=== PATIENT | male | born 1935 | race Caucasian/White ===

== ENCOUNTER 2018-06-27 20:08 | Inpatient (IN) ==
[2018-06-27 21:09] LABS: Basophils # 0.1 K/mcL (0.0-0.2); Basophils % 0.8 %; Eosinophils # 0.3 K/mcL (0.0-0.6); Eosinophils % 4.7 %; Hematocrit 39.9 % (37.5-50.1); Hemoglobin 13.2 g/dL (12.9-16.9); Immature Granulocytes % 0.3 % (0-4); Lymphocytes # 0.7 K/mcL (0.6-4.6); Lymphocytes % 11.2 %; Mean Corpuscular HGB Conc 33.1 g/dL (31.6-35.5); Mean Corpuscular Hemoglobin 30.7 pg (28.0-33.3); Mean Corpuscular Volume 92.8 fL (83.0-100.0); Mean Platelet Volume 10.3 fL (9.4-12.4); Monocytes # 0.8 K/mcL (0.0-1.3); Monocytes % 13.3 %; Neutrophils # 4.3 K/mcL (1.6-8.9); Platelet Count 182 K/mcL (140-400); Red Cell Distribution Width 13.7 % (11.5-14.5); Segmented Neutrophils % 69.7 %
[2018-06-27 21:15] LABS: INR 1.2; Prothrombin Time 13.7 Seconds (9.4-12.1)
[2018-06-27 21:18] LABS: Activated Partial Thrombo Time 30.7 Seconds (26.0-36.0)
--- NOTE | 2018-06-27 21:27 | Emergency Department Note ---
Disposition Clinical Impression: Weakness, Hyperglycemia, Acute kidney injury Chest pain Qualifiers: Chest pain type: unspecified Qualified Code(s): R07.9 - Chest pain, unspecified Disposition: Admitted As Inpatient Referrals: Shaun Villareal CNP [Primary Care Provider] - Forms: ED Satisfaction Letter General Adult HPI - General Chief complaint: ED Chest Pain Stated complaint: LOW BP Time Seen by Provider: 06/27/18 20:42 Source: patient Limitations: no limitations Nursing Notes Reviewed: Yes Vital Signs Reviewed: Yes - History of Present Illness HPI Narrative: 83-year-old male with past medical history including coronary artery disease status post three-vessel CABG in 1994, CHF, hypertension, hyperlipidemia, who presents with a chief complaint of low blood pressure and chest pain. Patient states he took his losartan last night before bed and is ropinirole this morning around 11 AM. His home health nurse came in around 1300 and took his blood pressure. His blood pressure was 103/40. They were concerned that his blood pressures were low. He had repeat blood pressures around this number. Patient states past couple of days he has been generally weak. He has had 2 falls but no loss of consciousness. No lightheadedness with the falls. Denies hitting his head. Some lightheadedness and no loss of consciousness. Around 1800 he developed nonradiating bilateral chest pressure with some shortness of breath. This resolved on its own after approximately 10 minutes. He states he has been having these episodes intermittently the past couple of months. States this episode was worse than prior and he was concerned about his blood pressure readings as well so he presents today ED this evening for further evaluation. At present he denies any pain and only complains of feeling tired. Patient does complain of productive cough for the past couple of weeks. No fevers. Pain Scale: 9 - Related Data Home Medications Medication Instructions Recorded Confirmed Albuterol Neb [Proventil Neb] 2.5 mg IH Q4H PRN 03/31/16 03/31/16 Albuterol Sulfate [Proair Hfa] 1 puff IH Q4H PRN 03/31/16 03/31/16 Aspirin 81 mg PO DAILY 03/31/16 03/31/16 Atorvastatin Calcium [Lipitor] 40 mg PO BID 03/31/16 03/31/16 Clopidogrel Bisulfate [Plavix] 75 mg PO BID 03/31/16 03/31/16 Clopidogrel [Plavix] 75 mg PO DAILY 03/31/16 03/31/16 Doxycycline Monohydrate [Mondoxyne 100 mg PO BID 03/31/16 03/31/16 Nl] Fluticasone Propionate Nasal 120 spray NS BID 03/31/16 03/31/16 [Flonase] Furosemide [Lasix] 40 mg PO DAILY 03/31/16 03/31/16 Guaifenesin 400 mg PO TID 03/31/16 03/31/16 HYDROcodone/Acet 5/325 mg [[place] 1 tab PO Q6H PRN 03/31/16 03/31/16 5-325 mg] Insulin ASPART [Novolog Flexpen] 5 unit SQ TID 03/31/16 03/31/16 Insulin Glargine,Hum.rec.anlog 20 unit SQ HS 03/31/16 03/31/16 [Lantus Solostar] Isosorbide MONOnitrate [Isosorbide 60 mg PO DAILY 03/31/16 03/31/16 Mononitrate] Losartan [Cozaar] 25 mg PO DAILY 03/31/16 03/31/16 Multivitamin [Multi-Day Vitamins] 1 tab PO DAILY 03/31/16 03/31/16 Neomycin/Polymyxin B Sulf/Hc 10 ml OT TID 03/31/16 03/31/16 [Xcwdvdwy-Tnabbbsxv-Js Ear Soln] Potassium Chloride [K-Tab ER] 40 meq PO DAILY 03/31/16 03/31/16 Ropinirole HCl [Requip] 5 mg PO HS 03/31/16 03/31/16 clonazePAM [Klonopin] 0.5 mg PO BID 03/31/16 03/31/16 Allergies Allergy/AdvReac Type Severity Reaction Status Date / Time doxycycline Allergy Hives Verified 06/27/18 20:25 enalaprilat [From Vasotec] Allergy Rash Verified 06/27/18 20:25 levofloxacin [From Levaquin] Allergy Hives Verified 06/27/18 20:25 Nefazodone [From Serzone] Allergy Hives Verified 06/27/18 20:25 ativan Allergy Seizure Uncoded 04/06/16 22:40 All systems ED: reviewed and negative except as stated. Review of Systems: As Per HPI Constitutional: Denies: fever, chills Eyes: Denies: vision change ENT ED: Denies: throat pain, congestion Cardiovascular: Reports: chest pain. Denies: palpitations, dyspnea on exertion Respiratory: Reports: cough (productive), dyspnea. Denies: wheezes Gastrointestinal: Denies: abdominal pain, nausea, diarrhea Genitourinary: Denies: urgency, dysuria Musculoskeletal: Denies: back pain Integumentary: Denies: rash Neurological: Reports: weakness. Denies: headache Allergic/Immunologic: Denies: itchy eyes Past Medical History - Past Medical History Attestation: Yes The following information was validated with the patient. Source: patient Medical history: Reports: CHF, diabetes, hyperlipidemia, hypertension, myocardial infarction Surgical history: Reports: cholecystectomy, coronary bypass (CABG) Psychiatric history: Reports: depression - Social History Smoking Status: Former smoker Smokeless Tobacco Status: No Alcohol use: Reports: none Drug use: Reports: none Physical Exam - General Limitations: no limitations General appearance: alert, in no apparent distress - Head Head exam: atraumatic, normocephalic - Eye Eye exam: Present: normal appearance, PERRL, EOMI - Neck Neck exam: Present: full ROM. Absent: tenderness - Respiratory Respiratory exam: Present: wheezes (mild bilateral expiratory wheezing). Absent : respiratory distress, accessory muscle use - Cardiovascular Cardiovascular exam: Present: normal rhythm, bradycardia, other (Bilateral radial pulses equal) - Abdominal Exam Abdominal exam: Present: soft, Non-Tender. Absent: distention, guarding - Expanded Lower Extremity Exam Hip/Pelvis exam: Present: normal inspection, full ROM - Neurological Exam Neurological exam: Present: alert, oriented X3, CN II-XII intact - Expanded Neurological Exam Patient oriented to: Present: person, place, time Speech: Present: fluid speech Cranial nerves: EOM function (II, III, IV, ): Normal, facial sensation (V): Normal, facial palsy (VII): Normal, spinal accessory function (XI): Normal, tongue deviation (XII): Normal Cerebellar function: finger to nose: Normal, heel to byrd: Normal Motor strength - LUE: 5/5 Motor strength - RUE: 5/5 Motor strength - LLE: 5/5 Motor strength - RLE: 5/5 Upper motor neuron exam: graciela neglect: Absent bilaterally, pronator drift: Absent bilaterally Sensory exam upper extremity: light touch: Normal Sensory exam lower extremity: light touch: Normal - Psychiatric Psychiatric exam: Present: normal affect, normal mood - Skin Skin exam: Present: warm, dry, intact Course Vital Signs Temperature 98.7 F 06/27/18 20:15 Pulse Rate 62 06/27/18 20:15 Respiratory Rate 20 06/27/18 20:15 Blood Pressure 138/74 06/27/18 20:15 O2 Sat by Pulse Oximetry 93 06/27/18 20:15 Temperature 98.7 F 06/27/18 20:15 Pulse Rate 60 06/27/18 22:47 Respiratory Rate 20 06/27/18 20:15 Blood Pressure 138/83 06/27/18 22:47 O2 Sat by Pulse Oximetry 96 06/27/18 22:47 Oxygen Delivery Oxygen Delivery Room Air Medical Decision Making - MDM Narrative Medical decision making narrative: Patient is presenting with chest pain and generalized weakness. Vitals while in the ED show normotensive blood pressures. Afebrile. We will obtain cardiac workup given his extensive cardiac history. EKG, CBC, BMP, troponin, BNP were ordered. We will also obtain chest x-ray and urinalysis given the patient's increased fatigue to rule out infectious process. 10:10 Labs and imaging reviewed. Troponin is less than 0.03. EKG unchanged from prior. No evidence of acute ischemia at this time. His creatinine is elevated. He appears dry. Glucose is elevated as well. We will give him a liter of IV fluids. He has no focal neurologic deficits or focal weakness. Urinalysis and chest x-ray without evidence of infection. We will admit the patient for further evaluation of generalized weakness and serial troponin given the patient's cardiac history. 10:35 Discussed with hospitalist, who accepts patient. No further recommendations at this time. Patient has remained chest pain free while in the ER. He has remained medically stable. - Medical Records Medical records reviewed: Yes I reviewed the patient's medical records. - Lab Data Lab results reviewed: Yes I reviewed the patient's lab results. Result diagrams: 06/27/18 20:51 06/27/18 20:51 Lab Results 06/27/18 06/27/18 06/27/18 Range/Units 20:51 20:51 20:51 WBC 6.2 (4.3-11.1) K/mcL RBC 4.30 (4.19-5.50) M/mcL Hgb 13.2 (12.9-16.9) g/dL Hct 39.9 (37.5-50.1) % MCV 92.8 (83.0-100.0) fL MCH 30.7 (28.0-33.3) pg MCHC 33.1 (31.6-35.5) g/dL RDW 13.7 (11.5-14.5) % Plt Count 182 (140-400) K/mcL MPV 10.3 (9.4-12.4) fL Immature Gran % 0.3 (0-4) % Seg Neutrophils % 69.7 % Lymphocytes % 11.2 % Monocytes % 13.3 % Eosinophils % 4.7 % Basophils % 0.8 % Neutrophils # 4.3 (1.6-8.9) K/mcL Lymphocytes # 0.7 (0.6-4.6) K/mcL Monocytes # 0.8 (0.0-1.3) K/mcL Eosinophils # 0.3 (0.0-0.6) K/mcL Basophils # 0.1 (0.0-0.2) K/mcL PT 13.7 H (9.4-12.1) Seconds INR 1.2 APTT 30.7 (26.0-36.0) Seconds Sodium (136-145) mEq/L Potassium (3.5-5.1) mEq/L Chloride (98-107) mEq/L Carbon Dioxide (23-29) mEq/L BUN (8-23) mg/dL Creatinine (0.70-1.30) mg/dL Est GFR ( Amer) (> 60) Est GFR (Non-Af Amer) (> 60) BUN/Creatinine Ratio (6-26) Glucose (70-105) mg/dL Calculated Osmolality (280-300) Calcium (8.6-10.3) mg/dL Troponin I (< 0.04) ng/mL B-Natriuretic Peptide (Less than 100) pg/mL TSH 2.401 (0.340-5.600) mcIU/mL Urine Color (Yellow) Urine Clarity (Clear) Urine pH (5.0-8.0) pH Units Ur Specific [place] (1.010-1.025) Urine Protein (Neg-Trace) mg/dL Urine Glucose (UA) (Normal) mg/dL Urine Ketones (Negative) mg/dL Urine Blood (Negative) Urine Nitrite (Negative) Urine Bilirubin (Negative) Urine Urobilinogen (Normal) mg/dL Ur Leukocyte Esterase (Negative) 06/27/18 06/27/18 06/27/18 Range/Units 20:51 20:51 21:42 WBC (4.3-11.1) K/mcL RBC (4.19-5.50) M/mcL Hgb (12.9-16.9) g/dL Hct (37.5-50.1) % MCV (83.0-100.0) fL MCH (28.0-33.3) pg MCHC (31.6-35.5) g/dL RDW (11.5-14.5) % Plt Count (140-400) K/mcL MPV (9.4-12.4) fL Immature Gran % (0-4) % Seg Neutrophils % % Lymphocytes % % Monocytes % % Eosinophils % % Basophils % % Neutrophils # (1.6-8.9) K/mcL Lymphocytes # (0.6-4.6) K/mcL Monocytes # (0.0-1.3) K/mcL Eosinophils # (0.0-0.6) K/mcL Basophils # (0.0-0.2) K/mcL PT (9.4-12.1) Seconds INR APTT (26.0-36.0) Seconds Sodium 136 (136-145) mEq/L Potassium 4.2 (3.5-5.1) mEq/L Chloride 101 (98-107) mEq/L Carbon Dioxide 29 (23-29) mEq/L BUN 30 H (8-23) mg/dL Creatinine 1.94 H (0.70-1.30) mg/dL Est GFR ( Amer) 40 L (> 60) Est GFR (Non-Af Amer) 33 L (> 60) BUN/Creatinine Ratio 15 (6-26) Glucose 351 H (70-105) mg/dL Calculated Osmolality 302 H (280-300) Calcium 9.2 (8.6-10.3) mg/dL Troponin I < 0.03 (< 0.04) ng/mL B-Natriuretic Peptide 69 (Less than 100) pg/mL TSH (0.340-5.600) mcIU/mL Urine Color Yellow (Yellow) Urine Clarity Clear (Clear) Urine pH 6.5 (5.0-8.0) pH Units Ur Specific [place] 1.008 L (1.010-1.025) Urine Protein Negative (Neg-Trace) mg/dL Urine Glucose (UA) 500 H (Normal) mg/dL Urine Ketones Negative (Negative) mg/dL Urine Blood Negative (Negative) Urine Nitrite Negative (Negative) Urine Bilirubin Negative (Negative) Urine Urobilinogen Normal (Normal) mg/dL Ur Leukocyte Esterase Negative (Negative) - Radiology Data Radiology results reviewed: Yes I reviewed the patient's radiology results. Chest X-Ray 06/27/18 20:26 IMPRESSION: No acute disease. D/ / Ronan Goldman MD / Ronan Goldman MD Interpreting Provider: Ronan Goldman MD - EKG Data EKG #1 EKG attestation: Yes I reviewed and interpreted this EKG. EKG results narrative: EKG from 06/27/2018 at 2019 shows sinus bradycardia with heart rate [address] elevation or depressions noted. No T-wave changes. Interval 201 ms. QTC 391. No evidence of acute ischemia. Compared to prior EKG on 01/13/2018 shows sinus rhythm with heart rate 60 otherwise no changes. Attestation Statement - Attestation Attestation: I examined this patient and my medical decision-making was reviewed with the Resident Physician, Dr. Reynolds. I agree with the documented findings, disposition and treatment plan as described except to the extent set forth below. Patient is an 83-year-old white male with a significant cardiac history as well as numerous risk factors including diabetes hypertension hyperlipidemia, who comes in complaining of 3 day history of gradually worsening generalized weakness as well as to recent falls secondary to "my legs giving out". Patient denies any preceding symptoms prior to these episodes no near-syncope or syncopal episodes. Patient states that he is just been feeling currently week and having trouble getting around as usual. Patient was also having intermittent episodes of chest pain although none currently. Patient arrives with abrasions and contusions to his bilateral knees secondary to his recent falls. Patient denies any head injury, no complaints of headache neck pain or back pain, no current chest discomfort or chest wall pain no abdominal pain no diaphoresis nausea vomiting or any other associated symptoms. I agree with patient's physical exam findings as documented. Vital signs are stable. Patient's lab evaluation shows mild hyperglycemia without acidosis, acute kidney injury likely secondary to decreased by mouth intake. Patient with no sign of infection seen normal chest x-ray and urine. Patient's cardiac evaluation shows an EKG was normal sinus rhythm without acute ischemia, no changes from prior EKG. Initial troponin is negative. Patient is chest pain- free at this time. Patient will be admitted for generalized weakness, chest pain with cardiac history, AK I, hyper glycemia. Case was discussed with hospitalist who accepted patient for admission. Heart Score - Score History: Slightly Suspicious EKG: Normal Age: Greater than 65 Risk Factors: Equal/Greater than 3 risk factor or history of atherosclerotic disease Troponin: Less than normal limit HEART Score Total: 4
[2018-06-27 21:28] LABS: BUN/Creatinine Ratio 15 (6-26); Blood Urea Nitrogen 30 mg/dL (8-23); Calcium 9.2 mg/dL (8.6-10.3); Carbon Dioxide 29 mEq/L (23-29); Chloride 101 mEq/L (98-107); Glucose 351 mg/dL (70-105); Osmolality,Calculated 302 (280-300); Potassium 4.2 mEq/L (3.5-5.1); Sodium 136 mEq/L (136-145); eGFR For Non-African Americans 33 (> 60)
[2018-06-27 21:29] LABS: Troponin I < 0.03 ng/mL (< 0.04)
[2018-06-27 22:03] LABS: Bilirubin,Urine Negative (Negative); Blood,Urine Negative (Negative); Clarity,Urine Clear (Clear); Color,Urine Yellow (Yellow); Glucose,Urine (UA) 500 mg/dL (Normal); Ketones,Urine Negative (Negative); Leukocyte Esterase,Urine Negative (Negative); Nitrite,Urine Negative (Negative); PH,Urine 6.5 pH Units (5.0-8.0); Protein,Urine Negative (Neg-Trace); Specific Gravity,Urine 1.008 (1.010-1.025); Urobilinogen,Urine Normal (Normal)
[2018-06-27] MEDS ORDERED: 0.9 % Sodium Chloride 1,000 ML IVC ONE (22:11)
[2018-06-28] MEDS ORDERED: Naloxone 0.4 MG/ML INJ IVP PRN (03:32)
[2018-06-28] MEDS ORDERED: *HR* Dextrose 50 % in Water (Syg) 50 ML SYRINGE IVP PRN (03:34)
[2018-06-28] MEDS ORDERED: Dextrose Gel 15 GM/37.5 ML TUBE PO PRN ×2 (03:34)
[2018-06-28] MEDS ORDERED: D5% in Water 1,000 ML IVC PRN (03:34)
--- NOTE | 2018-06-28 03:56 | Internal Med History&Physical ---
Date of Encounter: 06/28/18 Time of Encounter: 03:47 Internal Medicine - H&P: HPI Chief complaint: lower blood pressure Admitted From: Home Plans for Post Hospital Care: Home History of present illness: Mr. Hall is a 83 year old male presents due to low blood pressure. Reports [facility] nurse took his vitals and his BP is 103/40. Reports normally his bp is 130 /70. He is on losartan , imdur and lasix at home. He reports having light headedness and states his nurse saw him to be somnolent. He denies sob, chest pain, but did report uncomfortable upper abdominal gas pain. Reports he has been very flatulent lately. Patient reports having fallen 4 times the past year. Last time he follows one week ago where he was getting up from bed and his legs gave out, but patient denied syncope. He reported lightheadedness. His previous falls have been in similar manner. Past Med Surg Social Fam HX - Past Medical History Medical history: CHF, diabetes, hyperlipidemia, hypertension, myocardial infarction Additional medical history: enlarged prostate Psychiatric history: depression - Past Surgical History Surgical History: cholecystectomy, coronary bypass (CABG) Additional surgical history: CABG x 3v 1994. neck surgery - Social History Smoking Status: Former smoker Smokeless Tobacco Status: No Alcohol use: none Drug use: none - Family History Mother Living Status: Hx Family Cardiac Disorders: Yes Father Living Status: Hx Family Endocrine Disorder: Yes Internal Medicine - H&P: Meds Albuterol Neb [Proventil Neb] 2.5 mg IH Q4H PRN 03/31/16 [History] Albuterol Sulfate [Proair Hfa] 1 puff IH Q4H PRN 03/31/16 [History] Aspirin 81 mg PO DAILY 03/31/16 [History] Atorvastatin Calcium [Lipitor] 40 mg PO BID 03/31/16 [History] Clopidogrel Bisulfate [Plavix] 75 mg PO BID 03/31/16 [History] Clopidogrel [Plavix] 75 mg PO DAILY 03/31/16 [History] Doxycycline Monohydrate [Mondoxyne Nl] 100 mg PO BID 03/31/16 [History] Fluticasone Propionate Nasal [Flonase] 120 spray NS BID 03/31/16 [History] Furosemide [Lasix] 40 mg PO DAILY 03/31/16 [History] Guaifenesin 400 mg PO TID 03/31/16 [History] HYDROcodone/Acet 5/325 mg [[place] 5-325 mg] 1 tab PO Q6H PRN 03/31/16 [History] Insulin ASPART [Novolog Flexpen] 5 unit SQ TID 03/31/16 [History] Insulin Glargine,Hum.rec.anlog [Lantus Solostar] 20 unit SQ HS 03/31/16 [History ] Isosorbide MONOnitrate [Isosorbide Mononitrate] 60 mg PO DAILY 03/31/16 [History ] Losartan [Cozaar] 25 mg PO DAILY 03/31/16 [History] Multivitamin [Multi-Day Vitamins] 1 tab PO DAILY 03/31/16 [History] Neomycin/Polymyxin B Sulf/Hc [Lkdfawrl-Wvjdhmkok-Dq Ear Soln] 10 ml OT TID 03/31 [History] Potassium Chloride [K-Tab ER] 40 meq PO DAILY 03/31/16 [History] Ropinirole HCl [Requip] 5 mg PO HS 03/31/16 [History] clonazePAM [Klonopin] 0.5 mg PO BID 03/31/16 [History] 3 Allergy/AdvReac Type Severity Reaction Status Date / Time doxycycline Allergy Hives Verified 06/27/18 20:25 enalaprilat [From Vasotec] Allergy Rash Verified 06/27/18 20:25 levofloxacin [From Levaquin] Allergy Hives Verified 06/27/18 20:25 Nefazodone [From Serzone] Allergy Hives Verified 06/27/18 20:25 ativan Allergy Seizure Uncoded 04/06/16 22:40 All Systems PM: A 10-system review of systems was performed and is negative for pertinent findings except as documented above in the HPI. Review of systems: Constitutional: Denies fever, chills HEENT: Denies headache, trauma, blurry vision, eye discharge, ear pain, ear discharge neck pain, sore throat, rhinorrhea Heart: Denies chest pain palpitations, LE edema Lungs: Denies shortness of breath cough Abdomen: Worse abdominal pain, denies nausea vomiting diarrhea MSK: Denies back pain, joint pain reports falls Kidney: Denies dysuria, hematuria Skin: Denies rash, ulcers Neuro: Denies numbness and tingling Psych: denies anxiety, depression - Constitutional Vitals: Temp Pulse Resp BP Pulse Ox 97.8 F 54 16 131/74 92 06/28/18 00:01 06/28/18 00:01 06/28/18 00:01 06/28/18 00:01 06/28/18 00:01 Exam: General: pleasant, without distress HEENT: Head atraumatic, normocephalic, EOMI, PERRL, absent ear discharge or trauma, Moist Mucous Membranes, uvula midline Neck: nontender to palpation, absent lymphadenopathy, Cardiovascualr: Regular rate and rhythm with no murmur, absent gallops or rubs, 1+ pedal edema, radial pulses 2 out of 4 Lungs: Clear to auscultation bilaterally, not in respiratory distress Abdomen: Soft nontender, nondistended positive bowel sounds, absent hepatomegaly Skin: Bilateral knee abrasions, absent rash, absent open wounds and nodules MSK: absent clubbing, cyanosis, joints without swelling Neuro: Cranial nerves II through XII intact, UE and LE sensation equal bilaterally, UE and LEstrength 5/5, alert oriented 3, Psych: good insight and judgment, anxious, depressed Internal Med - H&P Results - Labs CBC & Chem 7: 06/27/18 20:51 06/27/18 20:51 - Assessment and plan (1) Diabetes mellitus Current Visit: Yes Status: Chronic Assessment and plan: Insulin-dependent diabetes mellitus Last A1c was 13.6 in 2016 Recheck A1c Started on weight-based insulin Diabetic diet Qualifiers: Diabetes mellitus type: type 2 Diabetes mellitus senior care insulin use: with senior care use Diabetes mellitus complication status: without complication Qualified Code(s): E11.9 - Type 2 diabetes mellitus without complications; Z79.4 - MCFP (current) use of insulin (2) Orthostatic hypotension Current Visit: Yes Status: Acute Assessment and plan: Patient presents with chief complaint of low blood pressure He also states that he has had multiple falls in the past year or Patient is standing up from a sitting position becomes lightheaded and his legs give out Due to patient's age, history of uncontrolled diabetes mellitus and mechanism of fall patient likely has orthostatic hypotension Would recommend a blood pressure goal of 140/90 for this patient due to his age. Currently blood pressure is 131/74 Plan: Every 4 vitals, telemetry, orthostatic vitals. (3) Abdominal pain Current Visit: Yes Status: Resolved Assessment and plan: Patient reports generalized upper abdomen pain Relates it to "gas pain" Reports increased flatulence States currently this is resolved From the emergency department patient was admitted for chest pain however patient denied this EKG is normal sinus rhythm without ST elevation or depression. Troponin all within normal limits. Chest x-ray within normal limits Qualifiers: Abdominal location: generalized Qualified Code(s): R10.84 - Generalized abdominal pain (4) Acute kidney injury Current Visit: Yes Status: Acute Assessment and plan: Patient's serum creatinines 1.94 He is a baseline CKD3 Mild NICOLAS Given 1 L IV fluids and EGD Recheck BMP in the morning (5) Coronary artery disease Current Visit: Yes Status: Chronic Assessment and plan: Patient has history of coronary artery disease status post CABG He denies chest pain Continue aspirin, atorvastatin, Plavix Qualifiers: Coronary Disease-Associated Artery/Lesion type: bypass graft [place] vs. transplanted heart: unspecified whether [place] or transplanted heart Associated angina: without angina Qualified Code(s): I25.810 - Atherosclerosis of coronary artery bypass graft(s) without angina pectoris (6) Hypertension Current Visit: Yes Status: Chronic Assessment and plan: Patient has history of hypertension At this point his blood pressures under control. Plan as above Qualifiers: Hypertension type: essential hypertension Qualified Code(s): I10 - Essential (primary) hypertension (7) RLS (restless legs syndrome) Current Visit: Yes Status: Chronic Assessment and plan: continue requip - Time Spent With Patient Total time spent is greater than 50% in coordination of care (as documented) at patient's floor/unit and/or counseling patient:
[2018-06-28 05:01] LABS: Calcium 8.5 mg/dL (8.6-10.3); Potassium 4.2 mEq/L (3.5-5.1)
[2018-06-28 07:25] LABS: Estimated Average Glucose 200 mg/dl; Hemoglobin A1C 8.6 %
[2018-06-28] MEDS: Furosemide 40 MG TABLET PO SCH (07:54)
[2018-06-28] MEDS: Aspirin 81 MG TAB.CHEW PO SCH (07:54)
[2018-06-28] MEDS: clonazePAM 0.5 MG TABLET PO SCH ×2 (07:55→21:17)
[2018-06-28] MEDS: Insulin LISPRO 300 UNITS/3 ML VIAL SQ SCH ×7 (07:57→21:18)
--- NOTE | 2018-06-28 12:54 | Event Note ---
Date of Encounter: 06/28/18 Time of Encounter: 12:49 83-year-old male with past medical history of hypertension, hyperlipidemia, diabetes, and restless leg syndrome presented with low blood pressure. He had a home service technician, who checked his blood pressure with reading of 103/40. Patient stated the number is lower than usual BP. He also reported malaise and the pressure in both ears recently. - Patient blood pressure normalized since omission, orthostatic BP was negative. - he has history of sensorineural hearing loss, he is in the process of getting a hearing aid. Patient was instructed to follow-up with PCP for ear exam. - Patient will be discharged in the morning if BP remains normal.
--- NOTE | 2018-06-28 17:06 | Electrocardiograph Report ---
[address] [place], [place] [address] Test Date: 2018-06-27 Pat Name: Errol Hall Department: [id number] Room: 3B44 Gender: M Van Loader: : 1935 Requested By: Ze Wade Order Number: [id number] Reading MD: Shira Ellis Measurements Intervals [place] Rate: 54 P: 22 [place]: 201 QRS: -35 QRSD: 86 T: 38 QT: 404 QTc: 391 Interpretive Statements SINUS BRADYCARDIA LOW QRS VOLTAGE IN PRECORDIAL LEADS INFERIOR MYOCARDIAL INFARCTION, PROBABLY OLD ANTEROLATERAL MYOCARDIAL INFARCTION, PROBABLY OLD Electronically Signed On 06-28-2018 17:05:06 EDT by Shira Ellis
[2018-06-28] MEDS ORDERED: NON-FORMULARY MEDICATION 1 EACH EACH (Ropinirole Hcl [Requip] 5 MG) PO SCH (21:00)
[2018-06-28] MEDS ORDERED: rOPINIRole 2 MG, rOPINIRole 3 MG PO SCH (21:00)
[2018-06-28] MEDS: Insulin DETEMIR 100 UNIT/ML X5UNITS SQ SCH (21:13)
[2018-06-29 07:01] LABS: BUN/Creatinine Ratio 18 (6-26); Blood Urea Nitrogen 23 mg/dL (8-23); Calcium 9.2 mg/dL (8.6-10.3); Carbon Dioxide 27 mEq/L (23-29); Chloride 102 mEq/L (98-107); Glucose 90 mg/dL (70-105); Osmolality,Calculated 287 (280-300); Potassium 3.9 mEq/L (3.5-5.1); Sodium 137 mEq/L (136-145); eGFR For Non-African Americans 55 (> 60)
[2018-06-29] MEDS: Insulin LISPRO 300 UNITS/3 ML VIAL SQ SCH ×7 (07:33→22:16)
[2018-06-29] MEDS: Aspirin 81 MG TAB.CHEW PO SCH (08:54)
[2018-06-29] MEDS: *HR* HYDROcodone/Acet 5/325 mg TABLET PO PRN (08:55)
[2018-06-29] MEDS: clonazePAM 0.5 MG TABLET PO SCH ×2 (08:55→22:25)
[2018-06-29] MEDS: Furosemide 40 MG TABLET PO SCH (08:55)
--- NOTE | 2018-06-29 19:36 | Internal Med Progress Note ---
Hospitalist Progress Note - Encounter Date of Encounter: 06/29/18 Time of Encounter: 18:00 - Subjective Interval History: Today Mr. Riley has a multitude of complaints. He does complain of having pressure in his ears with parmelodyvley worsing throughout the day . He states that the first thing in the morning when he gets up he has good hearing and as the day goes on his ears seem to accumulate pressure and by the end of the evening he is near deafness. 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 Was recommended to see Denteal for posssible bite block and new dentrurs, states that he was denied to go to the [facility]. He also complains of leg weakness, and multiple falls with reporting hitting his head on a chair and floor a few weeks ago. He now has right sided neck pain . - Exam Vitals: Temp Pulse Resp BP Pulse Ox 97.7 F 56 16 132/62 96 06/29/18 18:57 06/29/18 18:57 06/29/18 18:57 06/29/18 18:57 06/29/18 18:57 Exam: as above - Assessment and Plan (1) Coronary artery disease Current Visit: Yes Status: Chronic Assessment and Plan: Patient has history of coronary artery disease status post CABG He denies chest pain Continue aspirin, atorvastatin, Plavix (2) Diabetes mellitus Current Visit: Yes Status: Chronic Assessment and Plan: Glucose is greatly improved today at 90 fasting which is down from 234 from yesterday he has normalized with his current regimen. We will continue his Levemir and Humalog (3) Hypertension Current Visit: Yes Status: Chronic Assessment and Plan: Patient has history of hypertension At this point his blood pressures under control. Plan as above (4) Abdominal pain Current Visit: Yes Status: Resolved (5) Acute kidney injury Current Visit: Yes Status: Acute Assessment and Plan: Patient has long-term history of diabetes type 2 BUN/creatinine has normalized and GFR is greater than 60 we will continue to monitor. AK is probable due to dehydration (6) Orthostatic hypotension Current Visit: Yes Status: Acute (7) RLS (restless legs syndrome) Current Visit: Yes Status: Chronic Assessment and Plan: It has long-term history of versus leg syndrome and it appears that he was taking his ropinirole for restless leg 3 Times Daily with Maximum Doses of 5 Mg per Report. He also was taking his Cozaar at bedtime along with an excessive dose of 5 mg. As a result he was having some syncopal episodes and falling at night. He has history of frequent falls with latest fall falling out of a chair and hitting his head as well as contusing both of his knees region of the right knee. We will obtain x-rays of bilateral knees , will consult neuro DVT Prophylaxis: per protocol - Summary of Assessment and Plan Summary of Assessment and Plan: Mr. Mcdaniels is an 83-year-old vibrant pleasant elderly gentleman who today has multiple complaints mainly referring to his pressure in his ears, as related to hearing loss. He reports that when he first wakes up in the morning that he has crystal-clear hearing and as the day progresses he has pressure within his ears and. It the evening he is at a bulbous near deafness level. Reports that he is seen multiple ENTs and finally ended up at the [facility]. There he was diagnosed with TMJ and was recommended to have a new set of dentures made and to get a bite block at night. He reported that due to being a and he was denied services for these recommendations. Today he also complains of having leg weakness and frequent falls. He states that prior to admission he had fallen and hit his head and had contused both knees we will get x-ray of the bilateral knees to rule out any fracture. Were going to refer him to PT OT as well as to neurology. - Time Spent with Patient Total time spent is greater than 50% in coordination of care (as documented) at patient's floor/unit and/or counseling patient: 25 - 35 minutes Plan of Care Discussed with: patient Internal Medicine: Result - Labs CBC & Chem 7: 06/27/18 20:51 06/29/18 05:09 Labs: BMP 06/29/18 05:09 Sodium 137 Potassium 3.9 Chloride 102 Carbon Dioxide 27 BUN 23 Creatinine 1.26 Glucose 90 Calcium 9.2 - ABG Interpretation ABG results: PT/INR, D-dimer PT 13.7 Seconds (9.4-12.1) H 06/27/18 20:51 Consult Discharge Plan - Plan Referrals: Shaun Villareal CNP [Primary Care Provider] - (1) Coronary artery disease Qualifiers: Coronary Disease-Associated Artery/Lesion type: bypass graft [place] vs. transplanted heart: unspecified whether [place] or transplanted heart Associated angina: without angina Qualified Code(s): I25.810 - Atherosclerosis of coronary artery bypass graft(s) without angina pectoris (2) Diabetes mellitus Qualifiers: Diabetes mellitus type: type 2 Diabetes mellitus terminal supervisor insulin use: with penitentiary use Diabetes mellitus complication status: without complication Qualified Code(s): E11.9 - Type 2 diabetes mellitus without complications; Z79.4 - terminal operations manager (current) use of insulin (3) Hypertension Qualifiers: Hypertension type: essential hypertension Qualified Code(s): I10 - Essential (primary) hypertension (4) Abdominal pain Qualifiers: Abdominal location: generalized Qualified Code(s): R10.84 - Generalized abdominal pain
[2018-06-29] MEDS ORDERED: rOPINIRole 1 MG TABLET PO SCH (21:00)
[2018-06-29] MEDS: Insulin DETEMIR 100 UNIT/ML X5UNITS SQ SCH (22:26)
[2018-06-30] MEDS: Insulin LISPRO 300 UNITS/3 ML VIAL SQ SCH ×7 (08:28→21:12)
[2018-06-30] MEDS: Furosemide 40 MG TABLET PO SCH (08:31)
[2018-06-30] MEDS: Aspirin 81 MG TAB.CHEW PO SCH (08:31)
[2018-06-30] MEDS: clonazePAM 0.5 MG TABLET PO SCH ×2 (08:31→21:13)
--- NOTE | 2018-06-30 12:52 | Internal Med Progress Note ---
Hospitalist Progress Note - Encounter Date of Encounter: 06/30/18 Time of Encounter: 12:51 - Subjective Interval History: Pt states he has had some issues with pressure built up in his ears and build up pressure in his ears. He states he was diagnosed with TMJ at [facility] and again at [facility]. States physician at [facility] had offered that he see hiw who also happen to be a TMJ specialist. Pt states he was not able to make the 21/2 hour trip back down. States his PCP is helping him set up an appointment with [facility] dental. He denies fever, chills, N/V or diarrhea. He denies CP or SOB. - Exam Vitals: Temp Pulse Resp BP Pulse Ox 97.7 F 53 16 135/73 93 06/30/18 11:56 06/30/18 11:56 06/30/18 11:56 06/30/18 11:56 06/30/18 11:56 Exam: Exam: General: pleasant, without distress HEENT: Head atraumatic, normocephalic, EOMI, PERRL, absent ear discharge or trauma, Moist Mucous Membranes, uvula midline Neck: nontender to palpation, absent lymphadenopathy, Cardiovascualr: Regular rate and rhythm with no murmur, absent gallops or rubs, 1+ pedal edema, radial pulses 2 out of 4 Lungs: Clear to auscultation bilaterally, not in respiratory distress Abdomen: Soft nontender, nondistended positive bowel sounds, absent hepatomegaly Skin: Bilateral knee abrasions, absent rash, absent open wounds and nodules MSK: absent clubbing, cyanosis, joints without swelling Neuro: Cranial nerves II through XII intact, UE and LE sensation equal bilaterally, UE and LEstrength 5/5, alert oriented 3, Psych: good insight and judgment, anxious, depressed - Assessment and Plan (1) Diabetes mellitus Current Visit: Yes Status: Chronic Assessment and Plan: Insulin-dependent diabetes mellitus Last A1c was 13.6 in 2016 Recheck A1c 8.6. Started on weight-based insulin Diabetic diet (2) Hypertension Current Visit: Yes Status: Chronic Assessment and Plan: Patient has history of hypertension. Will hold Losartan for now. Blood pressures under control. (3) Abdominal pain Current Visit: Yes Status: Resolved Assessment and Plan: Resolved. (4) Acute kidney injury Current Visit: Yes Status: Acute Assessment and Plan: Patient's serum creatinine 1.94 down to 1.26. He is a baseline CKD3, Mild NICOLAS Given 1 L IV fluids in ED Recheck BMP in the morning (5) Orthostatic hypotension Current Visit: Yes Status: Acute Assessment and Plan: Patient presented with chief complaint of low blood pressure He also states that he has had multiple falls in the past year or Patient is standing up from a sitting position becomes lightheaded and his legs give out. Etiology unclear. Will consider hold BP medication for now. Will check orthostatic vitals. (6) RLS (restless legs syndrome) Current Visit: Yes Status: Chronic Assessment and Plan: Pt's Requip was increased to 4 mg BID and was taking it with his lorsatan. He thinks this may have contributed to his hypotensive episode. On this admission, Requip was held but then restarted at 2 mg QHS. Pt still have symptoms of RLS so Requip dose increased to 2mg BID for now. (7) Coronary artery disease Current Visit: Yes Status: Chronic Assessment and Plan: Patient has history of coronary artery disease status post CABG He denies chest pain Continue aspirin, atorvastatin, Plavix DVT Prophylaxis: per protocol - Summary of Assessment and Plan Summary of Assessment and Plan: Mr. Mcdaniels is an 83-year-old vibrant pleasant elderly gentleman who today has multiple complaints mainly referring to his pressure in his ears, as related to hearing loss. He reports that when he first wakes up in the morning that he has crystal-clear hearing and as the day progresses he has pressure within his ears and. It the evening he is at a bulbous near deafness level. Reports that he is seen multiple ENTs and finally ended up at the [facility]. There he was diagnosed with TMJ and was recommended to have a new set of dentures made and to get a bite block at night. He reported that due to being a and he was denied services for these recommendations. Today he also complains of having leg weakness and frequent falls. He states that prior to admission he had fallen and hit his head and had contused both knees we will get x-ray of the bilateral knees to rule out any fracture. - Time Spent with Patient Total time spent is greater than 50% in coordination of care (as documented) at patient's floor/unit and/or counseling patient: 25 - 35 minutes Internal Medicine: Result - Labs CBC & Chem 7: 06/27/18 20:51 06/29/18 05:09 - ABG Interpretation ABG results: PT/INR, D-dimer PT 13.7 Seconds (9.4-12.1) H 06/27/18 20:51 - Impressions Impressions Knee X-Ray 06/29/18 19:49 IMPRESSION: Prepatellar soft tissue swelling bilaterally. No underlying acute fracture or malalignment. Mild osteoarthrosis about the bilateral knees. D/ / Tyler Bergman / Tyler Bergman Interpreting Provider: Tyler Bergman Consult Discharge Plan - Plan Referrals: Shaun Villareal CNP [Primary Care Provider] - (1) Diabetes mellitus Qualifiers: Diabetes mellitus type: type 2 Diabetes mellitus skilled nursing insulin use: with skilled nursing use Diabetes mellitus complication status: without complication Qualified Code(s): E11.9 - Type 2 diabetes mellitus without complications; Z79.4 - rodent exterminator (current) use of insulin (2) Hypertension Qualifiers: Hypertension type: essential hypertension Qualified Code(s): I10 - Essential (primary) hypertension (3) Abdominal pain Qualifiers: Abdominal location: generalized Qualified Code(s): R10.84 - Generalized abdominal pain (7) Coronary artery disease Qualifiers: Coronary Disease-Associated Artery/Lesion type: bypass graft [place] vs. transplanted heart: unspecified whether [place] or transplanted heart Associated angina: without angina Qualified Code(s): I25.810 - Atherosclerosis of coronary artery bypass graft(s) without angina pectoris
--- NOTE | 2018-06-30 13:09 | Neurology - Consult Note ---
Date of Encounter: 06/30/18 Time of Encounter: 13:08 Assessment and Plan (1) Falls Current Visit: Yes Status: Acute Falling likely multifactorial in etiology, including history of peripheral diabetic neuropathy, indicated by presence of stock pattern of sensory loss and absence of DTRs, history of cervical disc disease causing myelopathy and then hearing loss. He did mention that in the evening hours when he can not hear he falls more easily. Today he walks with no difficulty. His gait, stance, pace appear intact to an 83 year old. Not much to intervene other than fall precautions. Will sign off at this time please call if any questions Qualifiers: Encounter type: initial encounter Qualified Code(s): W19.XXXA - Unspecified fall, initial encounter (2) Hearing loss associated with syndrome of both ears Current Visit: Yes Status: Acute This is unlikely a primary neurological disorder. Patient has rather extensive work up at [facility] and it was thought that his symptoms of hearing difficulty at evening hours likely related to TMJ?. Hearing difficult can contribute to gait difficulty in elderly patients. However, not much to intervene in this regard. (3) Occipital neuralgia of right side Current Visit: Yes Status: Acute This is a type of cervicogenic pain, likely related to cervical radiculopathy. May benefit from PT or occipital nerve blockade procedure. This can be done as outpatient basis History of Present Illness Chief complaint: Falls HPI: Mr. Hall is a 83 year old male with PMH significant for DM, diabetic neuropathy, history of cervical disc disease, s/p cervical spinal surgery, bilateral hearing loss who was admitted to the hospital due to complaints of headaches, balance difficulty, few falls and low blood pressure. Neurology was consulted due to complaints of having two falls and hearing difficulty. Regarding the hearing difficulty, he has been extensively evaluated at different medical facilities, via ENT and was told that he has TMJ. His complaint of hearing difficulty was that in the morning he can hear everything but as the day goes on he would gradually lose his hearing bilaterally. He reports two recent falls, one occurred after he was taking a nap during daytime and after he got up he fell to he left side and injured his left knee. He reports stabbing pain at the right neck referring to the right side of his skull. No other neurological deficits reported. No focal weakness. No urinary incontinence. Now able to walk without assistance. Past Med Surg Social Fam HX - Past Medical History Medical history: CHF, diabetes, hyperlipidemia, hypertension, myocardial infarction Additional medical history: enlarged prostate Psychiatric history: depression - Past Surgical History Surgical History: cholecystectomy, coronary bypass (CABG) Additional surgical history: CABG x 3v 1994. neck surgery - Social History Smoking Status: Former smoker Smokeless Tobacco Status: No Alcohol use: none Drug use: none - Family History Mother Living Status: Hx Family Cardiac Disorders: Yes Father Living Status: Hx Family Endocrine Disorder: Yes Medications and Allergies RX: Albuterol Neb [Proventil Neb] 2.5 mg IH Q4H PRN 03/31/16 [History] RX: Albuterol Sulfate [Proair Hfa] 1 puff IH Q4H PRN 03/31/16 [History] RX: Aspirin 81 mg PO DAILY 03/31/16 [History] RX: Clopidogrel [Plavix] 75 mg PO DAILY 03/31/16 [History] RX: HYDROcodone/Acet 5/325 mg [[place] 5-325 mg] 1 tab PO Q6H PRN 03/31/16 [ History] RX: Insulin ASPART [Novolog Flexpen] 3 - 5 unit SQ TIDWM 03/31/16 [History] RX: Insulin Glargine,Hum.rec.anlog [Lantus Solostar] 16 unit SQ HS 03/31/16 [ History] RX: Losartan [Cozaar] 25 mg PO DAILY 03/31/16 [History] RX: Potassium Chloride [K-Tab ER] 20 meq PO DAILY 03/31/16 [History] Atorvastatin Calcium [Lipitor] 40 mg PO HS 06/28/18 [History] Isosorbide MONOnitrate (24 HR) [Imdur] 60 mg PO DAILY 06/28/18 [History] Multivitamin [One Daily Multivitamin] 1 tab PO DAILY 06/28/18 [History] Pregabalin [Lyrica] 75 mg PO BID 06/28/18 [History] Ropinirole HCl [Requip] 4 mg PO BID 06/28/18 [History] Sertraline [Zoloft] 50 mg PO DAILY 06/28/18 [History] Torsemide [Demadex] 20 mg PO DAILY 06/28/18 [History] 3 Allergy/AdvReac Type Severity Reaction Status Date / Time doxycycline Allergy Hives Verified 06/28/18 12:51 enalaprilat [From Vasotec] Allergy Rash Verified 06/28/18 12:51 levofloxacin [From Levaquin] Allergy Hives Verified 06/28/18 12:51 Nefazodone [From Serzone] Allergy Hives Verified 06/28/18 12:51 ativan AdvReac Seizure Uncoded 06/28/18 12:51 All Systems: The remainder of the systems were reviewed and are negative Physical Examination - Vital Signs Vital Signs: Initial Vital Signs Temp Pulse Resp BP Pulse Ox 98.7 F 62 20 138/74 93 06/27/18 20:15 06/27/18 20:15 06/27/18 20:15 06/27/18 20:15 06/27/18 20:15 - Constitutional General appearance: comfortable - Neurologic Sensorimotor examination: other (Stocking pattern of sensory loss) Motor examination - right side: 5/5: deltoids, biceps, triceps, wrist flexion, wrist extension, diamond selector, hip flexors, tibialis Anterior, quadriceps, toe extension (EHL), plantarflexion Motor examination - left side: 5/5: deltoids, biceps, triceps, wrist flexion, wrist extension, hip flexors, diamond selector, quadriceps, tibialis Anterior, toe extension (EHL), plantarflexion Detailed sensory examination: other (Stocking pattern of sensory loss noted) Posture: other (None) Reflexes: Biceps: 1+, Triceps: 1+, Brachioradialis: 1+, Patella: 1+, Achilles: 1 + Mental Status Examination: awake, alert, oriented to person, oriented to place, oriented to time, follows commands appropriately, answers questions appropriately, no agnosia, no aphasia, no aproxia Cranial nerve examination: PERRL, EOMI, visual [place] intact, corneal reflexes brisk symmetrically, sensory to face intact, mastication intact, no facial asymmetry is present, no dysarthria, hearing is intact symmetrically, soft palate elevates bilaterally upon phonation, gag reflex intact, flexes SCM and trapezius muscles symmetrically with full power, tongue protrudes midline, no atrophy or facial fasiculations present Results - Laboratory Findings CBC and BMP: 06/27/18 20:51 06/29/18 05:09 Abnormal lab findings: Abnormal lab results PT 13.7 Seconds (9.4-12.1) H 06/27/18 20:51 Est GFR (Non-Af Amer) 55 (> 60) L 06/29/18 05:09 POC Glucose 121 mg/dL (70-99) H 06/29/18 20:28 Hemoglobin A1c 8.6 % (-5.6) H 06/28/18 04:16 Ur Specific [place] 1.008 (1.010-1.025) L 06/27/18 21:42 Urine Glucose (UA) 500 mg/dL (Normal) H 06/27/18 21:42 Consult Discharge Plan - Plan Referrals: Shaun Villareal, MERARI [Primary Care Provider] -
[2018-06-30] MEDS: rOPINIRole 1 MG TABLET PO SCH ×2 (13:15→21:08)
[2018-06-30] MEDS: Insulin DETEMIR 100 UNIT/ML X5UNITS SQ SCH (21:08)
[2018-06-30] MEDS: *HR* HYDROcodone/Acet 5/325 mg TABLET PO PRN (21:19)
[2018-07-01] MEDS: *HR* HYDROcodone/Acet 5/325 mg TABLET PO PRN ×2 (06:13→21:34)
[2018-07-01] MEDS: Insulin LISPRO 300 UNITS/3 ML VIAL SQ SCH ×7 (09:07→21:11)
[2018-07-01] MEDS: clonazePAM 0.5 MG TABLET PO SCH ×2 (09:10→21:11)
[2018-07-01] MEDS: rOPINIRole 1 MG TABLET PO SCH ×2 (09:12→21:11)
[2018-07-01] MEDS: Aspirin 81 MG TAB.CHEW PO SCH (09:13)
[2018-07-01] MEDS: Furosemide 40 MG TABLET PO SCH (09:13)
--- NOTE | 2018-07-01 12:46 | Neurology Progress Note ---
Date of Encounter: 07/01/18 Time of Encounter: 12:44 Assessment and Plan (1) Falls Current Visit: Yes Status: Acute Falling likely multifactorial in etiology, including history of peripheral diabetic neuropathy, indicated by presence of stock pattern of sensory loss and absence of DTRs, history of cervical disc disease causing myelopathy and then hearing loss. He did get MRI of cervical spine which showed previous spinal fusion at C3-C4 and disc disease progressed at C6-C7, this may contribute to his gait disturbances and falling May benefit from ortho/spine consultation Will sign off at this time please call if any questions Qualifiers: Encounter type: initial encounter Qualified Code(s): W19.XXXA - Unspecified fall, initial encounter (2) Hearing loss associated with syndrome of both ears Current Visit: Yes Status: Acute This is unlikely a primary neurological disorder. Patient has rather extensive work up at [facility] and it was thought that his symptoms of hearing difficulty at evening hours likely related to TMJ?. Hearing difficult can contribute to gait difficulty in elderly patients. However, not much to intervene in this regard. (3) Occipital neuralgia of right side Current Visit: Yes Status: Acute Subjective Principal diagnosis: falling and arm paresthesia and hearing difficulty Interval history: Patient seen and examined. He is stable, Still feels 'rough' due to hearing difficulty. He did complete MRI of cervical spine which showed MR/MR cervical spine wo con IMPRESSION: Status post C3-4 anterior instrumented fusion. Multilevel degenerative disc disease as described above, exacerbating congenitally narrow cervical spinal canal, improved at C3-4, stable to minimally progressed at C5-6 and C6-7. Spinal canal narrowing, mild to moderate at C5-6 and C6-7, mild at C2-3, C3-4, C4-5 and C7-T1. [place]am[place] narrowing, moderate to severe at right C4-5, bilateral C5-6 and left C6-7, moderate at left C3-4 and right C6-7, mild at bilateral C2-3, right C3-4 and left C4-5. Question minimally increased T2 signal in the cervical spinal cord at the C3-4 level, may be related to minimal myelomalacia. Objective - Constitutional Vitals: Temp Pulse Resp BP Pulse Ox 97.5 F L 57 16 133/61 92 07/01/18 10:52 07/01/18 10:52 07/01/18 10:52 07/01/18 10:52 07/01/18 10:52 - Neurological Exam Sensorimotor examination: Present: other (Stocking pattern of sensory loss) Motor Examination: Present: grossly full strength in all extremities Motor examination - right side: 5/5: deltoids, biceps, triceps, wrist flexion, wrist extension, dye jig operator, hip flexors, tibialis Anterior, quadriceps, toe extension (EHL), plantarflexion Motor examination - left side: 5/5: deltoids, biceps, triceps, wrist flexion, wrist extension, hip flexors, dye jig operator, quadriceps, tibialis Anterior, toe extension (EHL), plantarflexion Sensation intact: Present: other (Stocking pattern of sensory loss noted) Posture: Present: other (None) Reflexes: Biceps: 2+, Triceps: 2+, Brachioradialis: 2+, Patella: 2+, Achilles: 2 + Mental Status Examination: Present: awake, alert, oriented to person, oriented to place, oriented to time, follows commands appropriately, answers questions appropriately, no agnosia, no aphasia, no aproxia Cranial nerve examination: Present: PERRL, EOMI, visual [place] intact, corneal reflexes brisk symmetrically, sensory to face intact, mastication intact, no facial asymmetry is present, no dysarthria, hearing is intact symmetrically, soft palate elevates bilaterally upon phonation, gag reflex intact, flexes SCM and trapezius muscles symmetrically with full power, tongue protrudes midline, no atrophy or facial fasiculations present Results - Laboratory Findings CBC and BMP: 06/27/18 20:51 06/29/18 05:09 Abnormal lab findings: Abnormal lab results PT 13.7 Seconds (9.4-12.1) H 06/27/18 20:51 Est GFR (Non-Af Amer) 55 (> 60) L 06/29/18 05:09 POC Glucose 145 mg/dL (70-99) H 06/30/18 20:38 Hemoglobin A1c 8.6 % (-5.6) H 06/28/18 04:16 Ur Specific [place] 1.008 (1.010-1.025) L 06/27/18 21:42 Urine Glucose (UA) 500 mg/dL (Normal) H 06/27/18 21:42 Consult Discharge Plan - Plan Referrals: Shaun Villareal CNP [Primary Care Provider] -
--- NOTE | 2018-07-01 20:32 | Internal Med Progress Note ---
Hospitalist Progress Note - Encounter Date of Encounter: 07/01/18 Time of Encounter: 22:15 - Subjective Interval History: Pt states he has had some issues with pressure built up in his ears and build up pressure in his ears. He states he was diagnosed with TMJ at [facility] and again at [facility]. States physician at [facility] had offered that he see hiw who also happen to be a TMJ specialist. Pt states he was not able to make the 21/2 hour trip back down. States his PCP is helping him set up an appointment with [facility]. He denies fever, chills, N/V or diarrhea. He denies CP or SOB. - Exam Vitals: Temp Pulse Resp BP Pulse Ox 97.4 F L 57 16 146/62 93 07/01/18 18:51 07/01/18 18:51 07/01/18 18:51 07/01/18 18:51 07/01/18 18:51 Exam: Exam: General: pleasant, without distress HEENT: Head atraumatic, normocephalic, EOMI, PERRL, absent ear discharge or trauma, Moist Mucous Membranes, uvula midline Neck: tender with flexion but not with palpation, absent lymphadenopathy, Jaw popping and joint with poor integrity Cardiovascualr: Regular rate and rhythm with no murmur, absent gallops or rubs, 1+ pedal edema, radial pulses 2 out of 4 Lungs: Clear to auscultation bilaterally, not in respiratory distress Abdomen: Soft nontender, non distended positive bowel sounds, absent hepatomegaly Skin: Bilateral knee abrasions, absent rash, absent open wounds and nodules MSK: absent clubbing, cyanosis, joints without swelling Neuro: Cranial nerves II through XII intact, UE and LE sensation equal bilaterally, UE and LEstrength 5/5, alert oriented 3, Psych: good insight and judgment, anxious, depressed - Assessment and Plan (1) Orthostatic hypotension Current Visit: Yes Status: Acute Assessment and Plan: Patient presented with chief complaint of low blood pressure. Pt's requip dose was increased and he was taking it along with his Losartan and the combination likley resulted in orthostatic hypotension. He also states that he has had multiple falls in the past year or Patient is standing up from a sitting position becomes lightheaded and his legs give out. Etiology unclear. BP medication on hold for now. Decreased dose Requip to 2mg BID. Orthostatic vitals positive. BP improved. (2) Hypertension Current Visit: Yes Status: Chronic Assessment and Plan: BP meds currently on hold due to hypotension and NICOLAS (3) Abdominal pain Current Visit: Yes Status: Resolved (4) Acute kidney injury Current Visit: Yes Status: Acute Assessment and Plan: NICOLAS resolved. (5) Cervical disc disease Current Visit: Yes Status: Acute Assessment and Plan: Pt complaining of neck pain and VORA. MRI cervical spine showing multi level cervical spinal disc disease. Per neurology, pt may benefit form orthopedic spine consultation. Which can be called in am. Pt very uncomfortable. Continue prn pain control for now. MRI MR/MR cervical spine wo con IMPRESSION: Status post C3-4 anterior instrumented fusion. Multilevel degenerative disc disease as described above, exacerbating congenitally narrow cervical spinal canal, improved at C3-4, stable to minimally progressed at C5-6 and C6-7. Spinal canal narrowing, mild to moderate at C5-6 and C6-7, mild at C2-3, C3-4, C4-5 and C7-T1. Foraminal narrowing, moderate to severe at right C4-5, bilateral C5-6 and left C6-7, moderate at left C3-4 and right C6-7, mild at bilateral C2-3, right C3-4 and left C4-5. Question minimally increased T2 signal in the cervical spinal cord at the C3-4 level, may be related to minimal myelomalacia. (6) RLS (restless legs syndrome) Current Visit: Yes Status: Chronic (7) Coronary artery disease Current Visit: Yes Status: Chronic (8) Diabetes mellitus Current Visit: Yes Status: Chronic (9) Falls Current Visit: Yes Status: Acute Assessment and Plan: Will check MRI lumbar and thoracic as well due to recurrent falls and legs giving out on pt. X ray knees showed soft tissue swelling but no fx (10) TMJ (dislocation of temporomandibular joint) Current Visit: Yes Status: Acute Assessment and Plan: Severe case of TMJ. Pt states he has had some issues with pressure built up in his ears and build up pressure in his ears. Ear pressure B/L and slowly progresses as the day goes on and worse at night time. On physical exam, jaw joint clearly with poor integrity. He states he was diagnosed with TMJ at [facility] and again at [facility]. States physician at [facility] had offered that he see his who also happen to be a TMJ specialist. Pt states he was not able to make the 21/2 hour trip back down to [facility]. Requesting referral for [facility] for panoramic imaging and further evaluation. Will try medrol dose pack and will consider muscle relxant as well for some pain relief. Pt may benefit from TMJ arthroscopy. (11) Hearing loss associated with syndrome of both ears Current Visit: Yes Status: Acute Assessment and Plan: Patient has had rather extensive work up at [facility] and [facility] and it was thought that his symptoms of hearing difficulty at evening hours likely related to TMJ?. Per neurology, hearing difficulty can contribute to gait difficulty in elderly patients. Pt wants to follow up with [facility] for evaluation and requesting referral. DVT Prophylaxis: per protocol - Summary of Assessment and Plan Summary of Assessment and Plan: Mr. Mcdaniels is an 83-year-old vibrant pleasant elderly gentleman who today has multiple complaints mainly referring to his pressure in his ears, as related to hearing loss. He reports that when he first wakes up in the morning that he has crystal-clear hearing and as the day progresses he has pressure within his ears and. It the evening he is at a bulbous near deafness level. Reports that he is seen multiple ENTs and finally ended up at the [facility]. There he was diagnosed with TMJ and was recommended to have a new set of dentures made and to get a bite block at night. He reported that due to being a and he was denied services for these recommendations. Today he also complains of having leg weakness and frequent falls. He states that prior to admission he had fallen and hit his head and had contused both knees we will get x-ray of the bilateral knees to rule out any fracture. - Time Spent with Patient Total time spent is greater than 50% in coordination of care (as documented) at patient's floor/unit and/or counseling patient: less than 15 minutes Internal Medicine: Result - Labs CBC & Chem 7: 06/27/18 20:51 06/29/18 05:09 - ABG Interpretation ABG results: PT/INR, D-dimer PT 13.7 Seconds (9.4-12.1) H 06/27/18 20:51 - Impressions Impressions Cervical Spine MRI 07/01/18 10:54 IMPRESSION: Status post C3-4 anterior instrumented fusion. Multilevel degenerative disc disease as described above, exacerbating congenitally narrow cervical spinal canal, improved at C3-4, stable to minimally progressed at C5-6 and C6-7. Spinal canal narrowing, mild to moderate at C5-6 and C6-7, mild at C2-3, C3-4, C4-5 and C7-T1. Foraminal narrowing, moderate to severe at right C4-5, bilateral C5-6 and left C6-7, moderate at left C3-4 and right C6-7, mild at bilateral C2-3, right C3-4 and left C4-5. Question minimally increased T2 signal in the cervical spinal cord at the C3-4 level, may be related to minimal myelomalacia. D/ / Elmer Phillip MD / Elmer Phillip MD Interpreting Provider: Elmer Phillip MD Consult Discharge Plan - Plan Referrals: Shaun Villareal, COUNTER TENDER [Primary Care Provider] - (2) Hypertension Qualifiers: Hypertension type: essential hypertension Qualified Code(s): I10 - Essential (primary) hypertension (3) Abdominal pain Qualifiers: Abdominal location: generalized Qualified Code(s): R10.84 - Generalized abdominal pain (7) Coronary artery disease Qualifiers: Coronary Disease-Associated Artery/Lesion type: bypass graft [place] vs. transplanted heart: unspecified whether [place] or transplanted heart Associated angina: without angina Qualified Code(s): I25.810 - Atherosclerosis of coronary artery bypass graft(s) without angina pectoris (8) Diabetes mellitus Qualifiers: Diabetes mellitus type: type 2 Diabetes mellitus fdc insulin use: with fdc use Diabetes mellitus complication status: without complication Qualified Code(s): E11.9 - Type 2 diabetes mellitus without complications; Z79.4 - medical terminologist (current) use of insulin (9) Falls Qualifiers: Encounter type: initial encounter Qualified Code(s): W19.XXXA - Unspecified fall, initial encounter
[2018-07-01] MEDS: Insulin DETEMIR 100 UNIT/ML X5UNITS SQ SCH (21:11)
[2018-07-02] MEDS: *HR* HYDROcodone/Acet 5/325 mg TABLET PO PRN ×2 (03:52→21:44)
[2018-07-02 06:16] LABS: BUN/Creatinine Ratio 27 (6-26); Blood Urea Nitrogen 36 mg/dL (8-23); Calcium 9.1 mg/dL (8.6-10.3); Carbon Dioxide 26 mEq/L (23-29); Chloride 103 mEq/L (98-107); Glucose 176 mg/dL (70-105); Osmolality,Calculated 297 (280-300); Phosphorous 3.7 mg/dL (2.7-4.5); Sodium 137 mEq/L (136-145); eGFR For Non-African Americans 50 (> 60)
[2018-07-02] MEDS: rOPINIRole 1 MG TABLET PO SCH ×2 (07:26→21:35)
[2018-07-02] MEDS: Insulin LISPRO 300 UNITS/3 ML VIAL SQ SCH ×7 (07:55→21:24)
[2018-07-02] MEDS: methylPREDNISolone 4 MG TABLET PO SCH ×2 (08:06→16:36)
[2018-07-02] MEDS: clonazePAM 0.5 MG TABLET PO SCH ×2 (08:06→21:36)
[2018-07-02] MEDS: Aspirin 81 MG TAB.CHEW PO SCH (08:06)
[2018-07-02] MEDS: Furosemide 40 MG TABLET PO SCH (08:06)
--- NOTE | 2018-07-02 15:09 | Internal Med Progress Note ---
Hospitalist Progress Note - Encounter Date of Encounter: 07/02/18 Time of Encounter: 11:05 - Subjective Interval History: Pt was seen and assessed at bedside. He was alert and awake, very [place]. Pt reports that he would like to have a referral to [facility] for TMJ. He was to see [facility] for it,but did not want to drive 2 1/[address] and did not ever try to follow up at [facility]. AT the time of writing this note, we are still waiting on MRI reading. Pt denies chest pain, shortness breath, nausea, vomiting, diarrhea, abdominal pain, dizziness. He reports that his neck pain is at baseline. - Exam Vitals: Temp Pulse Resp BP Pulse Ox 97.6 F 59 16 119/67 93 07/02/18 10:54 07/02/18 14:20 07/02/18 10:54 07/02/18 14:20 07/02/18 10:54 Exam: General: Pt resting quietly on bed, no distress. Skin: pwd, no rashes, lesions, redness Neurological: Pt is alert and awake, oriented x 3, Speech is clear, PERRLA, EOMI , no nystagmus, no pronator drift. strength equal x 4 extremities HEENT: mucous mumbranes moist, no conjuctival pallor Neck: supple, no tracheal deviation, no lymphadenopathy, tenderness, no thyromegaly Heart: S1S2 heard without gallops, clicks, murmurs, no bradycardia or tachycardia, pt has no peripheral edema, pedal and radial pulses palpable bilaterally. Lungs: clear throughout without wheezing, rales, or ronchi, respirations are unlabored Abdomen: soft and non tender with bowel sound present, no hepatomegaly. Psych: Normal affect with good eye contact - Assessment and Plan (1) Coronary artery disease Current Visit: Yes Status: Chronic Assessment and Plan: Patient has history of coronary artery disease status post CABG Patient denies chest pain. Continue aspirin, atorvastatin, Plavix Continue telemetry (2) Diabetes mellitus Current Visit: Yes Status: Chronic Assessment and Plan: A1c 8.6%. Poorly controlled. Accuchecks achs We will continue his Levemir and Humalog (3) Hypertension Current Visit: Yes Status: Chronic Assessment and Plan: Patient has history of hypertension Well controlled. Orthostatics negative. Plan as above (4) Abdominal pain Current Visit: Yes Status: Resolved Assessment and Plan: Patient reports generalized upper abdomen pain Relates it to "gas pain" Reports increased flatulence States currently this is resolved From the emergency department patient was admitted for chest pain however patient denied this EKG is normal sinus rhythm without ST elevation or depression. Troponin all within normal limits. Chest x-ray within normal limits 07/02- Pt denies abdominal pain today. Denies nausea or vomiting. (5) Acute kidney injury Current Visit: Yes Status: Acute Assessment and Plan: Patient has long-term history of diabetes type 2 BUN/creatinine has normalized and GFR is greater than 60 we will continue to monitor. AK is probable due to dehydration 07/02- Creatinine 1.35, GFR 50. Continue to monitor labs and avoid nephrotoxins Gentle IVF hydration overnight, repeat labs in a.m. (6) Orthostatic hypotension Current Visit: Yes Status: Resolved Assessment and Plan: Orthostatic vitals normal today. Resolved. Pt denies dizziness with position change today. (7) RLS (restless legs syndrome) Current Visit: Yes Status: Chronic Assessment and Plan: Chronic. Continue home medications. DVT Prophylaxis: Heparin SQ BID - Time Spent with Patient Total time spent is greater than 50% in coordination of care (as documented) at patient's floor/unit and/or counseling patient: less than 15 minutes Internal Medicine: Result - Labs CBC & Chem 7: 06/27/18 20:51 07/02/18 04:41 Labs: BMP 07/02/18 04:41 Sodium 137 Potassium 4.0 Chloride 103 Carbon Dioxide 26 BUN 36 H Creatinine 1.35 H Glucose 176 H Calcium 9.1 Liver Function 07/02/18 Range/Units 04:41 Albumin 4.0 (3.5-5.7) g/dL - ABG Interpretation ABG results: PT/INR, D-dimer PT 13.7 Seconds (9.4-12.1) H 06/27/18 20:51 - Impressions Impressions Lumbar Spine MRI 07/01/18 21:56 IMPRESSION: Multilevel degenerative disc disease as described above, exacerbating congenitally narrow lumbar spinal canal, progressed at L3-4, mildly progressed at L1-2, L2-3 and L5-S1. Spinal canal narrowing, moderate to severe at L1-2 and L3-4, moderate at L4-5, mild to moderate at L2-3, mild at L5-S1. Foraminal narrowing, severe at bilateral L5-S1, moderate to severe at left L4-5, moderate at bilateral L3-4 and right L4-5, mild at bilateral L1-and bilateral L2-3. 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 Follow-up recommendation is listed below. RECOMMENDATIONS: Managing Abdominal Aortic Aneurysms 2.6-2.9 cm: Every 5 years* 3.0-3.4 cm: Every 3 years. 3.5-3.9 cm: Every 1 year. 4.0-4.4 cm: Every 1 year. Recommend vascular consultation. 4.5-5.4 cm: Every 6 months. Recommend vascular consultation. Greater than or equal to 5.5 cm: Referral to vascular surgeon. *For abdominal aortas with maximum diameter of 2.6-2.9 cm meeting criteria for AAA (>50% of proximal normal segment). Reference: J Vasc Surg. 2008;50(4 Suppl):S2-49 D/ / Elmer Phillip MD / Elmer Phillip MD Interpreting Provider: Elmer Phillpi MD Thoracic Spine MRI 07/01/18 21:57 IMPRESSION: No evidence of acute abnormality. Multilevel degenerative changes of the thoracic spine without spinal canal stenosis. D/ / 07/02/2018 13:46:37 Nahum Gamez MD / melinda Interpreting Provider: Nahum Gamez MD Consult Discharge Plan - Plan Referrals: Shaun Villareal, TWITCHELL OPERATOR [Primary Care Provider] - (1) Coronary artery disease Qualifiers: Coronary Disease-Associated Artery/Lesion type: bypass graft [place] vs. transplanted heart: unspecified whether [place] or transplanted heart Associated angina: without angina Qualified Code(s): I25.810 - Atherosclerosis of coronary artery bypass graft(s) without angina pectoris (2) Diabetes mellitus Qualifiers: Diabetes mellitus type: type 2 Diabetes mellitus senior care insulin use: with local intermodal truck driver use Diabetes mellitus complication status: without complication Qualified Code(s): E11.9 - Type 2 diabetes mellitus without complications; Z79.4 - [facility] (current) use of insulin (3) Hypertension Qualifiers: Hypertension type: essential hypertension Qualified Code(s): I10 - Essential (primary) hypertension (4) Abdominal pain Qualifiers: Abdominal location: generalized Qualified Code(s): R10.84 - Generalized abdominal pain
[2018-07-02] MEDS: 0.9 % Sodium Chloride 1,000 ML IVC SCH (16:36)
[2018-07-02] MEDS: *HR* Heparin 5,000 UNIT/ML VIAL SQ SCH (17:28)
[2018-07-02] MEDS: Insulin DETEMIR 100 UNIT/ML X5UNITS SQ SCH (21:56)
[2018-07-03] MEDS: *HR* Heparin 5,000 UNIT/ML VIAL SQ SCH (05:11)
[2018-07-03 06:24] LABS: Basophils # 0.1 K/mcL (0.0-0.2); Basophils % 0.8 %; Eosinophils # 0.2 K/mcL (0.0-0.6); Eosinophils % 3.1 %; Hematocrit 41.6 % (37.5-50.1); Hemoglobin 13.9 g/dL (12.9-16.9); Immature Granulocytes % 0.3 % (0-4); Lymphocytes # 0.8 K/mcL (0.6-4.6); Lymphocytes % 11.2 %; Mean Corpuscular HGB Conc 33.4 g/dL (31.6-35.5); Mean Corpuscular Hemoglobin 30.5 pg (28.0-33.3); Mean Corpuscular Volume 91.4 fL (83.0-100.0); Mean Platelet Volume 10.1 fL (9.4-12.4); Monocytes # 0.8 K/mcL (0.0-1.3); Monocytes % 10.3 %; Neutrophils # 5.6 K/mcL (1.6-8.9); Platelet Count 206 K/mcL (140-400); Red Blood Count 4.55 M/mcL (4.19-5.50); Red Cell Distribution Width 13.6 % (11.5-14.5); Segmented Neutrophils % 74.3 %
[2018-07-03 06:45] LABS: BUN/Creatinine Ratio 26 (6-26); Blood Urea Nitrogen 30 mg/dL (8-23); Calcium 9.4 mg/dL (8.6-10.3); Carbon Dioxide 24 mEq/L (23-29); Chloride 104 mEq/L (98-107); Glucose 160 mg/dL (70-105); Osmolality,Calculated 294 (280-300); Potassium 4.1 mEq/L (3.5-5.1); Sodium 137 mEq/L (136-145); eGFR For Non-African Americans > 60 (> 60)
[2018-07-03] MEDS: Insulin LISPRO 300 UNITS/3 ML VIAL SQ SCH ×4 (08:25→13:57)
[2018-07-03] MEDS: Furosemide 40 MG TABLET PO SCH (08:27)
[2018-07-03] MEDS: methylPREDNISolone 4 MG TABLET PO SCH (08:27)
[2018-07-03] MEDS: clonazePAM 0.5 MG TABLET PO SCH (08:27)
[2018-07-03] MEDS: rOPINIRole 1 MG TABLET PO SCH (08:27)
[2018-07-03] MEDS: Aspirin 81 MG TAB.CHEW PO SCH (08:27)
[2018-07-03] MEDS: 0.9 % Sodium Chloride 1,000 ML IVC SCH (11:26)
[2018-07-03 12:04] VITALS: BP 135/75
--- NOTE | 2018-07-03 14:57 | Discharge Summary ---
- NOTES TO OUTPATIENT PROVIDER Notes to Outpatient Provider: will need a follow up with ortho/spine. follow up with [facility] for TMJ. will need to have monitor AAA- CT in one year Date of Encounter: 07/03/18 Time of Encounter: 14:54 - Discharge Diagnosis (1) Coronary artery disease Priority: Secondary Status: Chronic Qualifiers: Coronary Disease-Associated Artery/Lesion type: bypass graft [place] vs. transplanted heart: unspecified whether [place] or transplanted heart Associated angina: without angina Qualified Code(s): I25.810 - Atherosclerosis of coronary artery bypass graft(s) without angina pectoris (2) Diabetes mellitus Priority: Secondary Status: Chronic Qualifiers: Diabetes mellitus type: type 2 Diabetes mellitus fci insulin use: with terminal block assembler use Diabetes mellitus complication status: without complication Qualified Code(s): E11.9 - Type 2 diabetes mellitus without complications; Z79.4 - intermediate designer (current) use of insulin (3) Hypertension Priority: Secondary Status: Chronic Qualifiers: Hypertension type: essential hypertension Qualified Code(s): I10 - Essential (primary) hypertension (4) Abdominal pain Priority: Secondary Status: Resolved Qualifiers: Abdominal location: generalized Qualified Code(s): R10.84 - Generalized abdominal pain (5) Acute kidney injury Priority: Secondary Status: Acute (6) Orthostatic hypotension Priority: Primary Status: Resolved (7) RLS (restless legs syndrome) Priority: Secondary Status: Chronic Hospital course: Mr. Hall is a 83 year old male PMH significant for DM, diabetic neuropathy , history of cervical disc disease, s/p cervical spinal surgery, bilateral hearing loss who was admitted to the hospital due to complaints of headaches, balance difficulty, few falls and low blood pressure. He experienced 2 falls prior to presenting to ED and complains of hearing difficulty . He has ad extensive workup at both [facility] and [facility]- however according to the patient he has not followed up. Neurology was consulted who felt that his hearing loss is not neurological and to cont follow up with [facility] PT/ OT evaluated the patient recommending outpatient follow up. A cervical MRI showed previous spinal fusion at C3-C4 and disc disease progressed at C6-C7, MRI thoracic spine Multilevel degenerative changes of the thoracic spine without spinal canal stenosis. MRI lumbar spine Multilevel degenerative disc disease Spinal canal narrowing, moderate to severe at L1-2 and L3-4, moderate at L4-5, mild to moderate at L2-3, mild at L5-S1. Foraminal narrowing, severe at bilateral L5-S1, moderate to severe at left L4-5, moderate at bilateral L3-4 and right L4-5, mild at bilateral L1-and bilateral L2-3. 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 Follow-up recommendation. Carotid duplex with nonstentic palque Patient has been ambulating without any difficulty BP has been stable , no numbness or tingling voiced He has equal strength in all 4 extremities I offered a consult to ortho/spine which patient declined he would like to see a physician in [place] as outpatient. He did have NIOCLAS during admission which did resolve - Advised patient to follow up as outpatient. Also advised the patient to follow up with ENT at [facility] or [facility] concerning TMJ. Advised patient to follow up with PCP and to have CT of abd in 1 yr to monitor aneurysm. Patient verbalized understanding He is hemodynamically stable and ready for discharge - Time Spent with Patient Total time spent providing and/or coordinating discharge services: - Discharge Medications Home Medications: Albuterol Neb [Proventil Neb] 2.5 mg IH Q4H PRN 03/31/16 [History] Albuterol Sulfate [Proair Hfa] 1 puff IH Q4H PRN 03/31/16 [History] Aspirin 81 mg PO DAILY 03/31/16 [History] Clopidogrel [Plavix] 75 mg PO DAILY 03/31/16 [History] HYDROcodone/Acet 5/325 mg [[place] 5-325 mg] 1 tab PO Q6H PRN 03/31/16 [History] Insulin ASPART [Novolog Flexpen] 3 - 5 unit SQ TIDWM 03/31/16 [History] Insulin Glargine,Hum.rec.anlog [Lantus Solostar] 16 unit SQ HS 03/31/16 [History ] Losartan [Cozaar] 25 mg PO DAILY 03/31/16 [History] Potassium Chloride [K-Tab ER] 20 meq PO DAILY 03/31/16 [History] Atorvastatin Calcium [Lipitor] 40 mg PO HS 06/28/18 [History] Isosorbide MONOnitrate (24 HR) [Imdur] 60 mg PO DAILY 06/28/18 [History] Multivitamin [One Daily Multivitamin] 1 tab PO DAILY 06/28/18 [History] Pregabalin [Lyrica] 75 mg PO BID 06/28/18 [History] Ropinirole HCl [Requip] 4 mg PO BID 06/28/18 [History] Sertraline [Zoloft] 50 mg PO DAILY 06/28/18 [History] Torsemide [Demadex] 20 mg PO DAILY 06/28/18 [History] Allergies/Adverse Reactions: 3 Allergy/AdvReac Type Severity Reaction Status Date / Time doxycycline Allergy Hives Verified 06/28/18 12:51 enalaprilat [From Vasotec] Allergy Rash Verified 06/28/18 12:51 levofloxacin [From Levaquin] Allergy Hives Verified 06/28/18 12:51 Nefazodone [From Serzone] Allergy Hives Verified 06/28/18 12:51 ativan AdvReac Seizure Uncoded 06/28/18 12:51 Date of admission: 07/02/18 16:24 Primary care physician: Shaun Villareal CNP Discharging clinician: Chelsea Tidwell Anticipated date of discharge: 07/03/18 - Constitutional Vitals: Temp Pulse Resp BP Pulse Ox 97.5 F L 55 17 135/75 95 07/03/18 12:03 07/03/18 12:03 07/03/18 12:03 07/03/18 12:03 07/03/18 12:03 General appearance: Present: A&O X 3 Exam: see above - Head Head exam: Present: atraumatic, normocephalic - Eye Eye exam: Present: PERRL, conjuntiva pink, sclera anicteric Pupils: Present: PERRL - Neck Neck exam general surgery: Present: supple, trachea midline. Absent: lymphadenopathy - Respiratory Respiratory exam: Present: CTAB. Absent: accessory muscle use, rales, rhonchi, wheezes - Cardiovascular Cardiovascular exam: Present: RRR, +S1, +S2. Absent: diastolic murmur, gallop, rubs, systolic murmur - GI/Abdominal GI/Abdominal exam: Present: normal bowel sounds, soft, no peritoneal signs. Absent: distended, tenderness - Extremities Exam Extremities exam: Present: warm, radial pulses palpable and symmetrical. Absent : calf tenderness, cyanotic, pedal edema - Neurological Exam Neurological exam: Present: CN II-XII intact, oriented X3, no focal deficits. Absent: pronater drift, facial droop, speech deficit - Skin Skin exam: Present: dry, intact - Patient Status Disposition: Home, Self-Care Condition: Good Functional capacity at discharge: uses cane/walker Overall status at discharge: patient is back to baseline - Discharge Instructions Instructions: Chest Pain (DC) Follow Up With: Shaun Villareal CNP [Primary Care Provider] - - Diet and Activity Activity: as per physical therapy Diet: advance to your usual diet
== END 2018-07-03 17:14 | disposition home or self-care (01) | DRG 312 ==
LOC: EMEROOARM 20:08 → 3BNU 20:08
PROVIDERS: ADMIT Pediatrics; ATTEND Pediatrics

== ENCOUNTER 2019-06-29 10:57 | Observation (INO) ==
[2019-06-29 11:40] LABS: Hematocrit 40.9 % (37.5-50.1); Hemoglobin 13.7 g/dL (12.9-16.9); Mean Corpuscular HGB Conc 33.5 g/dL (31.6-35.5); Mean Corpuscular Hemoglobin 31.7 pg (28.0-33.3); Mean Corpuscular Volume 94.7 fL (83.0-100.0); Mean Platelet Volume 10.7 fL (9.4-12.4); Platelet Count 127 K/mcL (140-400); Red Blood Count 4.32 M/mcL (4.19-5.50); Red Cell Distribution Width 13.3 % (11.5-14.5); White Blood Count 6.1 K/mcL (4.3-11.1)
[2019-06-29 11:53] LABS: BUN/Creatinine Ratio 20 (6-26); Blood Urea Nitrogen 34 mg/dL (8-23); Calcium 9.3 mg/dL (8.6-10.3); Carbon Dioxide 26 mEq/L (23-29); Chloride 100 mEq/L (98-107); Glucose 339 mg/dL (70-105); Osmolality,Calculated 303 (280-300); Potassium 4.5 mEq/L (3.5-5.1); Sodium 136 mEq/L (136-145); eGFR For African Americans 48 (> 60); eGFR For Non-African Americans 39 (> 60)
[2019-06-29 11:54] LABS: Troponin I < 0.03 ng/mL (< 0.04)
--- NOTE | 2019-06-29 12:18 | Emergency Department Note ---
Disposition Clinical Impression: Acute on chronic renal insufficiency Syncope Qualifiers: Syncope type: unspecified Qualified Code(s): R55 - Syncope and collapse Closed head injury Qualifiers: Encounter type: initial encounter Qualified Code(s): S09.90XA - Unspecified injury of head, initial encounter Disposition: Admitted As Inpatient Condition: Fair Time of Disposition: 13:11 General Adult HPI - General Chief complaint: ED Fall Stated complaint: syncope Time Seen by Provider: 06/29/19 10:59 Source: EMS Limitations: no limitations Nursing Notes Reviewed: Yes Vital Signs Reviewed: Yes - History of Present Illness HPI Narrative: Patient presents with 2 syncopal episodes today, but the one that he remembers is that he was at the table and he did not have a premonition of syncope and he woke up on the floor. He does have generalized head pain and abrasion on the right side of the head. Also has right-sided abdominal pain which is dull. He denies any blood in the urine or stool. Has some sneezing but no rhinorrhea or coughing. No fevers or blurred vision. No pain or swelling or numbness of extremities. No skin rash or bruising of the skin. Social history: No smoking or alcohol, lives at home with his fiancee Pain Scale: 10 - Related Data Home Medications Medication Instructions Recorded Confirmed Albuterol Sulfate [Proair Hfa] 2 puff IH Q6H PRN 03/31/16 06/29/19 Insulin ASPART [Novolog Flexpen] 5 unit SQ TIDWM 03/31/16 06/29/19 Insulin Glargine,Hum.rec.anlog 12 unit SQ HS 03/31/16 06/29/19 [Lantus Solostar] Potassium Chloride [K-Tab ER] 20 meq PO DAILY 03/31/16 06/29/19 Isosorbide MONOnitrate (24 HR) 60 mg PO DAILY 06/28/18 06/29/19 [Imdur] Multivitamin [One Daily 1 tab PO DAILY 06/28/18 06/29/19 Multivitamin] Ropinirole HCl [Requip] 4 mg PO QPM 06/28/18 06/29/19 Budesonide/Formoterol 80/4.5 2 puff IH BID 06/29/19 06/29/19 [Symbicort 80/4.5] Ropinirole HCl [Requip] 2 mg PO QAM 06/29/19 06/29/19 Sertraline [Zoloft] 50 mg PO DAILY 06/29/19 06/29/19 Simethicone [Gas-X] 160 mg PO QID PRN 06/29/19 06/29/19 Allergies Allergy/AdvReac Type Severity Reaction Status Date / Time doxycycline Allergy Hives Verified 06/28/18 12:51 enalaprilat [From Vasotec] Allergy Rash Verified 06/28/18 12:51 levofloxacin [From Levaquin] Allergy Hives Verified 06/28/18 12:51 Nefazodone [From Serzone] Allergy Hives Verified 06/28/18 12:51 ativan AdvReac Seizure Uncoded 06/28/18 12:51 All systems ED: reviewed and negative except as stated. Review of Systems: As Per HPI Past Medical History - Past Medical History Medical history: Reports: CHF, diabetes, hyperlipidemia, hypertension, myocardial infarction Surgical history: Reports: cholecystectomy, coronary bypass (CABG) Psychiatric history: Reports: depression - Social History Smoking Status: Former smoker Smokeless Tobacco Status: No Alcohol use: Reports: none Drug use: Reports: none Physical Exam CONSTITUTIONAL: Well-appearing; well-nourished; A&O X3, in no apparent distress HEAD: Normocephalic; there is a slight abrasion on the right forehead EYES: PERRL, EOMI, no scleral icterus NOSE: The nose is normal in appearance without rhinorrhea NECK: Supple without rigidity, no CHARY RESP: Normal chest excursion with respiration; breath sounds clear and equal bilaterally; no wheezes, rhonchi, or rales CARD: Regular rhythm, without murmurs, rub or gallop ABD: Non-distended; non-tender, soft, without rigidity, rebound or guarding SKIN: Normal for age and race; warm and dry; no apparent lesions, no rash NEUROLOGICAL: Patient is alert and oriented times three. Cranial nerves III- XII are intact. Sensory and motor functions are intact. Strength is 5/5 for flexion and extension in all 4 extremities. Finger to nose testing is equal and normal bilaterally. - General Limitations: no limitations General appearance: alert Course Vital Signs Temperature 97.5 F L 06/29/19 10:59 Pulse Rate 62 06/29/19 10:59 Respiratory Rate 18 06/29/19 10:59 Blood Pressure 133/73 06/29/19 10:59 O2 Sat by Pulse Oximetry 97 06/29/19 10:59 Temperature 97.5 F L 06/29/19 16:49 Pulse Rate 54 06/29/19 16:49 Respiratory Rate 16 06/29/19 16:49 Blood Pressure 123/69 06/29/19 16:49 O2 Sat by Pulse Oximetry 96 06/29/19 16:49 Oxygen Delivery Oxygen Delivery Room Air Medical Decision Making - MDM Narrative Medical decision making narrative: Patient does have a history of congestive heart failure and did have a syncopal episode putting him at high risk of arrhythmia and he will be admitted to the hospital at the completion of the evaluation here. I did speak with the roxane wilhelm's step son who is in the room with him. He does confirm the patient is not confused. 1218 I did review the patient's EKG showing sinus bradycardia with a rate of 56 bpm but without acute ischemic change or evidence of arrhythmia 1221 I did review the labs and test results and have seen the patient on multiple occasions and I did speak with the hospitalist to accept the patient for admission. Concern for possible arrhythmia as etiology of the syncope especially with his history of congestive heart failure. I did give him 500 mL bolus as his renal function is somewhat worsened compared to his baseline 1310 I did go back and speak with the patient again before transport upstairs and the patient does have some right-sided abdominal pain. I did examine him and the pain is only minimal. No pulsatile abdominal mass. I will get a CT scan before the patient goes upstairs just in case there would be some etiology of the syncope within the abdomen. Results pending. [address] Gamez about the abdominal aortic aneurysm incidentally noted on the CT scan 4 cm and they will follow this further as an inpatient. I do not suspect rupture or that this was related to the syncopal episode 1751 - Medical Records Medical records reviewed: Yes I reviewed the patient's medical records. - Lab Data Lab results reviewed: Yes I reviewed the patient's lab results. Result diagrams: 06/29/19 11:22 06/29/19 11:22 Lab Results 06/29/19 06/29/19 Range/Units 11:22 11:22 WBC 6.1 (4.3-11.1) K/mcL RBC 4.32 (4.19-5.50) M/mcL Hgb 13.7 (12.9-16.9) g/dL Hct 40.9 (37.5-50.1) % MCV 94.7 (83.0-100.0) fL MCH 31.7 (28.0-33.3) pg MCHC 33.5 (31.6-35.5) g/dL RDW 13.3 (11.5-14.5) % Plt Count 127 L (140-400) K/mcL MPV 10.7 (9.4-12.4) fL Sodium 136 (136-145) mEq/L Potassium 4.5 (3.5-5.1) mEq/L Chloride 100 (98-107) mEq/L Carbon Dioxide 26 (23-29) mEq/L BUN 34 H (8-23) mg/dL Creatinine 1.67 H (0.70-1.30) mg/dL Est GFR ( Amer) 48 L (> 60) Est GFR (Non-Af Amer) 39 L (> 60) BUN/Creatinine Ratio 20 (6-26) Glucose 339 H (70-105) mg/dL Calculated Osmolality 303 H (280-300) Calcium 9.3 (8.6-10.3) mg/dL Troponin I < 0.03 (< 0.04) ng/mL - Radiology Data Radiology results reviewed: Yes I reviewed the patient's radiology results. Critical Care Time Critical Care Time: No
[2019-06-29] MEDS ORDERED: 0.9 % Sodium Chloride 500 ML IVC ONE (12:55)
[2019-06-29] MEDS ORDERED: Simethicone 80 MG TAB.CHEW PO PRN (16:09)
[2019-06-29] MEDS ORDERED: Acetaminophen 325 MG TABLET PO PRN (16:10)
[2019-06-29] MEDS ORDERED: Mag Hydrox/Al Hydrox/Simeth 30 ML UDC PO PRN (16:10)
[2019-06-29] MEDS ORDERED: *HR* Promethazine 25 MG/ML VIAL IVP PRN (16:10)
[2019-06-29] MEDS ORDERED: Naloxone 0.4 MG/ML INJ IVP PRN (16:10)
[2019-06-29] MEDS ORDERED: Ondansetron 4 MG/2 ML VIAL IVP PRN (16:10)
[2019-06-29] MEDS ORDERED: traMADol 50 MG TABLET PO PRN (16:10)
[2019-06-29] MEDS ORDERED: Dextrose Gel 15 GM/37.5 ML TUBE PO PRN ×2 (16:12)
[2019-06-29] MEDS ORDERED: D5% in Water 1,000 ML IVC PRN (16:12)
[2019-06-29] MEDS ORDERED: *HR* Dextrose 50 % in Water (Syg) 50 ML SYRINGE IVP PRN (16:12)
--- NOTE | 2019-06-29 16:51 | Internal Med History&Physical ---
Date of Encounter: 06/29/19 Time of Encounter: 16:41 Internal Medicine - H&P: HPI Admitted From: Home Plans for Post Hospital Care: Home History of present illness: Mr. Hall is a 84 year old male with psat medical history of orthostatic hyp otenison, frequent falls, CAD, CHF, CKD, HTN, HLP, DM, and restless leg syndrome presented with another fall today. He woke up today and sit on the dinner table, finished breakfast and went out to gas station. He came back and sit by the table for a break, the next thing he remembered is that he was lying on the floor. He cannot recall how he fell and no one with him at that time. He denied any prodrome such as lightheadedness, chest pain, shortness of breath, body shaking. After he woke up on the floor he denied tongue biting, or loss control of bowel or bladder. He recently had another fall and was sent to [place] initially, then was transferred to [facility], He cannot recall any specific diagnosis was made. He has hx of CAD and CABG, has hx of restless leg syndrome and takes requip currently. He reported he had side effect with requip in the past but cannot specify what type of reaction. In the ED, VS were stable, Labs showed negative troponin, baseline CKD and el evated BG more than 300. He is admitted for further evaluation. Code status discussed, he pete be full code. Past Med Surg Social Fam HX - Past Medical History Medical history: CHF, diabetes, hyperlipidemia, hypertension, myocardial infarction Additional medical history: enlarged prostate Psychiatric history: depression - Past Surgical History Surgical History: cholecystectomy, coronary bypass (CABG) Additional surgical history: CABG x 3v 1994. neck surgery - Social History Smoking Status: Former smoker Smokeless Tobacco Status: No Alcohol use: none Drug use: none - Family History Mother Living Status: Hx Family Cardiac Disorders: Yes Father Living Status: Hx Family Endocrine Disorder: Yes Internal Medicine - H&P: Meds Albuterol Sulfate [Proair Hfa] 2 puff IH Q6H PRN 03/31/16 [History] Insulin ASPART [Novolog Flexpen] 5 unit SQ TIDWM 03/31/16 [History] Insulin Glargine,Hum.rec.anlog [Lantus Solostar] 12 unit SQ HS 03/31/16 [History] Potassium Chloride [K-Tab ER] 20 meq PO DAILY 03/31/16 [History] Isosorbide MONOnitrate (24 HR) [Imdur] 60 mg PO DAILY 06/28/18 [History] Multivitamin [One Daily Multivitamin] 1 tab PO DAILY 06/28/18 [History] Ropinirole HCl [Requip] 4 mg PO QPM 06/28/18 [History] Budesonide/Formoterol 80/4.5 [Symbicort 80/4.5] 2 puff IH BID 06/29/19 [History] Ropinirole HCl [Requip] 2 mg PO QAM 06/29/19 [History] Sertraline [Zoloft] 50 mg PO DAILY 06/29/19 [History] Simethicone [Gas-X] 160 mg PO QID PRN 06/29/19 [History] Allergy/AdvReac Type Severity Reaction Status Date / Time doxycycline Allergy Hives Verified 06/28/18 12:51 enalaprilat [From Vasotec] Allergy Rash Verified 06/28/18 12:51 levofloxacin [From Levaquin] Allergy Hives Verified 06/28/18 12:51 Nefazodone [From Serzone] Allergy Hives Verified 06/28/18 12:51 ativan AdvReac Seizure Uncoded 06/28/18 12:51 All Systems PM: A 10-system review of systems was performed and is negative for pertinent findings except as documented above in the HPI. Review of systems: REVIEW OF SYSTEMS: CONSTITUTIONAL: No weight loss, fever, chills, weakness or fatigue. HEENT: Eyes: No visual loss, blurred vision, double vision or yellow sclerae. Ears, Nose, Throat: No hearing loss, sneezing, congestion, runny nose or sore throat. SKIN: No rash or itching. CARDIOVASCULAR: No chest pain, chest pressure or chest discomfort. No palpitations or edema. RESPIRATORY: No shortness of breath, cough or sputum. GASTROINTESTINAL: No anorexia, nausea, vomiting or diarrhea. No abdominal pain or blood. GENITOURINARY: No dysuria, urgency, or frequency. NEUROLOGICAL: No headache, dizziness, syncope, paralysis, ataxia, numbness or tingling in the extremities. No change in bowel or bladder control. MUSCULOSKELETAL: No muscle, back pain, joint pain or stiffness. HEMATOLOGIC: No anemia, bleeding or bruising. LYMPHATICS: No enlarged nodes. No history of splenectomy. PSYCHIATRIC: No history of depression or anxiety. ENDOCRINOLOGIC: No reports of sweating, cold or heat intolerance. No polyuria or polydipsia. - Constitutional Vitals: Temp Pulse Resp BP Pulse Ox 97.5 F L 53 16 125/66 97 06/29/19 10:59 06/29/19 13:48 06/29/19 13:48 06/29/19 13:48 06/29/19 13:48 General appearance: Present: A&O X 3 Exam: PHYSICAL EXAMINATION: GENERAL APPEARANCE: The patient is alert, oriented and in no acute distress. HEENT: Head is normocephalic. The sinuses are nontender. Pupils are equal and reactive. The nares are patent. Oropharynx clear without lesions. NECK: Supple without lymphadenopathy. HEART: Regular rate and rhythm. LUNGS: No crackles or wheezes are heard. ABDOMEN: Soft, nontender, nondistended with good bowel sounds heard. Inguinal area is normal. EXTREMITIES: Without cyanosis, clubbing or edema. NEUROLOGICAL: Gross nonfocal. SKIN: Warm and dry without any rash. Internal Med - H&P Results - Labs CBC & Chem 7: 06/29/19 11:22 06/29/19 11:22 Labs: Short CBC 06/29/19 Range/Units 11:22 WBC 6.1 (4.3-11.1) K/mcL Hgb 13.7 (12.9-16.9) g/dL Hct 40.9 (37.5-50.1) % Plt Count 127 L (140-400) K/mcL BMP 06/29/19 11:22 Sodium 136 Potassium 4.5 Chloride 100 Carbon Dioxide 26 BUN 34 H Creatinine 1.67 H Glucose 339 H Calcium 9.3 Cardiac Enzymes 06/29/19 Range/Units 11:22 Troponin I < 0.03 (< 0.04) ng/mL - Impressions ITS Impressions Chest X-Ray 06/29/19 11:49 IMPRESSION: No focal airspace consolidation or edema. D/ / Ami Briseno MD / Ami Briseno MD Interpreting Provider: Ami Briseno MD Head CT 06/29/19 11:59 IMPRESSION: No acute intracranial abnormality. Chronic small vessel disease. D/ / Ben Mckenzie MD / Ben Mckenzie MD Interpreting Provider: Ben Mckenzie MD Abdomen/Pelvis CT 06/29/19 16:31 IMPRESSION: 1. There is an infrarenal abdominal aortic aneurysm measuring up to 4.0 cm, slightly larger. 2. Nonobstructing stone in the upper pole of the right kidney, unchanged. 3. Mild thickening of the bladder wall, nonspecific. This could be related to infection, or outlet obstruction. There are signs of hematuria. Cystoscopy may be of benefit for further evaluation. Large left bladder diverticulum the stable. 4. Colonic diverticulosis. 5. Extensive atherosclerotic disease. RECOMMENDATIONS: 4.0 cm abdominal aortic aneurysm. Recommend follow-up every 12 months and vascular consultation. Reference: J Am Francine Radiol 2013;10:789-794. D/ / Ayo Hall MD / Ayo Hall MD Interpreting Provider: Ayo Hall MD - Assessment and Plan (1) Syncope Current Visit: Yes Status: Acute Assessment and plan: 84 year old male with Hx of fall and syncope presented with recurrent fall and syncope. He has extensive hx of CV diseases. Based on hx, it is likely cardiogenic, arrhythmia related. First set trop was negative. EKG has no acute changes. CT head negative. We will continue cycling troponin, tele, and ekg as needed. Orthostatic BP. ECHO and carotid doppler in am. PT/OT consult. Qualifiers: Syncope type: unspecified Qualified Code(s): R55 - Syncope and collapse (2) Falls Current Visit: Yes Status: Acute Assessment and plan: PT/OT consult. Qualifiers: Encounter type: initial encounter Qualified Code(s): W19.XXXA - Unspecified fall, initial encounter (3) Coronary artery disease Current Visit: No Status: Chronic Assessment and plan: No chest pain, continue home meds. Qualifiers: Coronary Disease-Associated Artery/Lesion type: bypass graft [place] vs. transplanted heart: unspecified whether [place] or transplanted heart Associated angina: without angina Qualified Code(s): I25.810 - Atherosclerosis of coronary artery bypass graft(s) without angina pectoris (4) Diabetes mellitus Current Visit: No Status: Chronic Assessment and plan: continue home insulin regimen, started on ISS. Qualifiers: Diabetes mellitus type: type 2 Diabetes mellitus usp insulin use: with usp use Diabetes mellitus complication status: without complication Qualified Code(s): E11.9 - Type 2 diabetes mellitus without complications; Z79.4 - intermediate designer (current) use of insulin (5) Hypertension Current Visit: No Status: Chronic Assessment and plan: BP controlled, continue home meds. Qualifiers: Hypertension type: essential hypertension Qualified Code(s): I10 - Essential (primary) hypertension (6) Hyperlipidemia Current Visit: No Status: Chronic Assessment and plan: repeat lipid panel, continue home meds. Qualifiers: Hyperlipidemia type: unspecified Qualified Code(s): E78.5 - Hyperlipidemia, unspecified (7) Orthostatic hypotension Current Visit: No Status: Chronic Assessment and plan: repeat orthostatis BP. (8) RLS (restless legs syndrome) Current Visit: No Status: Chronic Assessment and plan: Continue home meds. (9) CKD (chronic kidney disease) Current Visit: No Status: Chronic Assessment and plan: BUN/Cr at baseline, cont monitoring. Qualifiers: Chronic kidney disease stage: stage 3 (moderate) Qualified Code(s): N18.3 - Chronic kidney disease, stage 3 (moderate) (10) DVT prophylaxis Current Visit: Yes Status: Acute Assessment and plan: Heparin sq. - Time Spent With Patient Total time spent is greater than 50% in coordination of care (as documented) at patient's floor/unit and/or counseling patient: Greater than 35 minutes
[2019-06-29] MEDS: rOPINIRole 1 MG TABLET PO SCH (17:18)
[2019-06-29] MEDS: Insulin LISPRO 300 UNITS/3 ML VIAL SQ SCH ×3 (17:19→22:20)
[2019-06-29] MEDS: *HR* Heparin 5,000 UNIT/ML VIAL SQ SCH (17:26)
[2019-06-29] MEDS: Budesonide/Formoterol 80/4.5 1 PUFF INH IH SCH (19:45)
[2019-06-29 21:37] LABS: Bilirubin,Urine Negative (Negative); Blood,Urine Negative (Negative); Clarity,Urine Clear (Clear); Color,Urine Yellow (Yellow); Glucose,Urine (UA) 100 mg/dL (Normal); Ketones,Urine Negative (Negative); Leukocyte Esterase,Urine Negative (Negative); Nitrite,Urine Negative (Negative); PH,Urine 6.5 pH Units (5.0-8.0); Protein,Urine Negative (Neg-Trace); Specific Gravity,Urine 1.014 (1.010-1.025); Urobilinogen,Urine Normal (Normal)
[2019-06-29] MEDS: Insulin DETEMIR 100 UNIT/ML X5UNITS SQ SCH (22:19)
[2019-06-30 01:39] LABS: Basophils % 0.5 %; Eosinophils # 0.2 K/mcL (0.0-0.6); Hematocrit 41.3 % (37.5-50.1); Hemoglobin 13.7 g/dL (12.9-16.9); Immature Granulocytes % 0.4 % (0-4); Lymphocytes # 0.7 K/mcL (0.6-4.6); Lymphocytes % 11.7 %; Mean Corpuscular HGB Conc 33.2 g/dL (31.6-35.5); Mean Corpuscular Hemoglobin 31.1 pg (28.0-33.3); Mean Corpuscular Volume 93.7 fL (83.0-100.0); Mean Platelet Volume 10.9 fL (9.4-12.4); Monocytes # 0.6 K/mcL (0.0-1.3); Platelet Count 121 K/mcL (140-400); Red Blood Count 4.41 M/mcL (4.19-5.50); Red Cell Distribution Width 13.3 % (11.5-14.5); Segmented Neutrophils % 72.4 %; White Blood Count 5.6 K/mcL (4.3-11.1)
[2019-06-30 02:02] LABS: Chol/HDL Ratio 4.3 (0-4.9)
[2019-06-30] MEDS: *HR* Heparin 5,000 UNIT/ML VIAL SQ SCH ×2 (05:25→17:48)
[2019-06-30] MEDS: Budesonide/Formoterol 80/4.5 1 PUFF INH IH SCH ×2 (07:25→22:27)
[2019-06-30] MEDS ORDERED: Regadenoson 0.4 MG/5 ML SYRINGE IVP ONE (08:58)
--- NOTE | 2019-06-30 09:04 | Internal Med Progress Note ---
Hospitalist Progress Note - Encounter Date of Encounter: 06/30/19 Time of Encounter: 09:02 - Subjective Interval History: Mr. Hall is a 84 year old male with psat medical history of orthostatic hypotenison, frequent falls, CAD, CHF, CKD, HTN, HLP, DM, and restless leg syndrome presented with another fall today. He woke up today and sit on the dinner table, finished breakfast and went out to gas station. He came back and sit by the table for a break, the next thing he remembered is that he was lying on the floor. He cannot recall how he fell and no one with him at that time. He denied any prodrome such as lightheadedness, chest pain, shortness of breath, body shaking. After he woke up on the floor he denied tongue biting, or loss control of bowel or bladder. In the ED, VSS, labs showed baseline BUN/Cr, negative trop, EKG no acute st-t changes. Orthostatic BP was POSITIVE. Carotid doppler, echo, and stress test ordered. Pt on tele. Overnight he had no dizziness or fall. He denies chest pain, shortness of breath, or palpitation. - Exam Vitals: Temp Pulse Resp BP Pulse Ox 97.8 F 57 16 155/77 94 06/30/19 07:18 06/30/19 07:18 06/30/19 07:25 06/30/19 07:18 06/30/19 07:25 Exam: PHYSICAL EXAMINATION: GENERAL APPEARANCE: The patient is alert, oriented and in no acute distress. HEENT: Head is normocephalic. The sinuses are nontender. Pupils are equal and reactive. The nares are patent. Oropharynx clear without lesions. NECK: Supple without lymphadenopathy. HEART: Regular rate and rhythm. LUNGS: No crackles or wheezes are heard. ABDOMEN: Soft, nontender, nondistended with good bowel sounds heard. Inguinal area is normal. EXTREMITIES: Without cyanosis, clubbing or edema. NEUROLOGICAL: Gross nonfocal. SKIN: Warm and dry without any rash. - Assessment and Plan (1) Syncope Current Visit: Yes Status: Acute Assessment and Plan: 84 year old male with Hx of fall and syncope presented with recurrent fall and syncope. He has extensive hx of CV diseases. EKG has no acute changes. CT head negative. Trop negative. Orthostatic BP POSITIVE. Pt instructed to maintain good hydration, increase salt intake as appropriate, change position slowly. We will not start pt on meds for orthostatic hypotension at this point. Tele trace reviewed, no malignant arrhythmia overnight. Continue monitoring. ECHO, stress test, and carotid doppler ordered. PT/OT consult. (2) Falls Current Visit: Yes Status: Acute Assessment and Plan: No fracture. PT/OT consult. (3) Coronary artery disease Current Visit: No Status: Chronic Assessment and Plan: No chest pain, continue home meds. (4) Diabetes mellitus Current Visit: No Status: Chronic Assessment and Plan: continue home insulin regimen, started on ISS. (5) Hypertension Current Visit: No Status: Chronic Assessment and Plan: BP controlled, continue home meds. (6) Hyperlipidemia Current Visit: No Status: Chronic Assessment and Plan: repeat lipid panel, continue home meds. (7) Orthostatic hypotension Current Visit: No Status: Chronic Assessment and Plan: repeat orthostatis BP is positive. education on how to cope with orthostatic hypotension provided. (8) RLS (restless legs syndrome) Current Visit: No Status: Chronic Assessment and Plan: Continue home meds. (9) CKD (chronic kidney disease) Current Visit: No Status: Chronic Assessment and Plan: BUN/Cr at baseline, cont monitoring. (10) DVT prophylaxis Current Visit: Yes Status: Acute Assessment and Plan: Heparin sq. - Time Spent with Patient Total time spent is greater than 50% in coordination of care (as documented) at patient's floor/unit and/or counseling patient: Greater than 35 minutes Plan of Care Discussed with: patient Internal Medicine: Result - Labs CBC & Chem 7: 06/30/19 01:16 06/29/19 11:22 Labs: Short CBC 06/29/19 06/30/19 Range/Units 11:22 01:16 WBC 6.1 5.6 (4.3-11.1) K/mcL Hgb 13.7 13.7 (12.9-16.9) g/dL Hct 40.9 41.3 (37.5-50.1) % Plt Count 127 L 121 L (140-400) K/mcL Neutrophils # 4.0 (1.6-8.9) K/mcL BMP 06/29/19 11:22 Sodium 136 Potassium 4.5 Chloride 100 Carbon Dioxide 26 BUN 34 H Creatinine 1.67 H Glucose 339 H Calcium 9.3 Cardiac Enzymes 06/29/19 06/29/19 06/29/19 Range/Units 11:22 16:44 19:21 Troponin I < 0.03 < 0.03 < 0.03 (< 0.04) ng/mL Urine 06/29/19 Range/Units 21:30 Urine Color Yellow (Yellow) Urine Clarity Clear (Clear) Urine pH 6.5 (5.0-8.0) pH Units Ur Specific [place] 1.014 (1.010-1.025) Urine Protein Negative (Neg-Trace) mg/dL Urine Glucose (UA) 100 H (Normal) mg/dL - Impressions Impressions Chest X-Ray 06/29/19 11:49 IMPRESSION: No focal airspace consolidation or edema. D/ / Ami Briseno MD / Ami Briseno MD Interpreting Provider: Ami Briseno MD Head CT 06/29/19 11:59 IMPRESSION: No acute intracranial abnormality. Chronic small vessel disease. D/ / Ben Mckenzie MD / Ben Mckenzie MD Interpreting Provider: Ben Mckenzie MD Abdomen/Pelvis CT 06/29/19 16:31 IMPRESSION: 1. There is an infrarenal abdominal aortic aneurysm measuring up to 4.0 cm, slightly larger. 2. Nonobstructing stone in the upper pole of the right kidney, unchanged. 3. Mild thickening of the bladder wall, nonspecific. This could be related to infection, or outlet obstruction if there are signs of hematuria. Cystoscopy may be of benefit for further evaluation. Large left bladder diverticulum is stable. 4. Colonic diverticulosis. 5. Extensive atherosclerotic disease. RECOMMENDATIONS: 4.0 cm abdominal aortic aneurysm. Recommend follow-up every 12 months and vascular consultation. Reference: J Am Francine Radiol 2013;10:789-794. D/ / 06/29/2019 16:42:39 Ayo Hall MD / melinda Interpreting Provider: Ayo Hall MD Consult Discharge Plan - Plan [facility]errals: [facility]Primary Care Provider] - (1) Syncope Qualifiers: Syncope type: unspecified Qualified Code(s): R55 - Syncope and collapse (2) Falls Qualifiers: Encounter type: initial encounter Qualified Code(s): W19.XXXA - Unspecified fall, initial encounter (3) Coronary artery disease Qualifiers: Coronary Disease-Associated Artery/Lesion type: bypass graft [place] vs. transplanted heart: unspecified whether [place] or transplanted heart Associated angina: without angina Qualified Code(s): I25.810 - Atherosclerosis of coronary artery bypass graft(s) without angina pectoris (4) Diabetes mellitus Qualifiers: Diabetes mellitus type: type 2 Diabetes mellitus retirement insulin use: with retirement use Diabetes mellitus complication status: without complication Qualified Code(s): E11.9 - Type 2 diabetes mellitus without complications; Z79.4 - FPC (current) use of insulin (5) Hypertension Qualifiers: Hypertension type: essential hypertension Qualified Code(s): I10 - Essential (primary) hypertension (6) Hyperlipidemia Qualifiers: Hyperlipidemia type: unspecified Qualified Code(s): E78.5 - Hyperlipidemia, unspecified (9) CKD (chronic kidney disease) Qualifiers: Chronic kidney disease stage: stage 3 (moderate) Qualified Code(s): N18.3 - Chronic kidney disease, stage 3 (moderate)
[2019-06-30 09:36] LABS: Estimated Average Glucose 229 mg/dl
[2019-06-30] MEDS: Insulin LISPRO 300 UNITS/3 ML VIAL SQ SCH ×7 (11:25→20:54)
[2019-06-30] MEDS: Multivit/Ca/Min/Fe/FA 1 TAB TABLET PO SCH (11:32)
[2019-06-30] MEDS: rOPINIRole 1 MG TABLET PO SCH ×2 (11:32→17:39)
[2019-06-30] MEDS: Isosorbide MONOnitrate (24 HR) 60 MG TAB.ER.24H PO SCH (11:32)
[2019-06-30] MEDS: Insulin DETEMIR 100 UNIT/ML X5UNITS SQ SCH (20:56)
[2019-07-01] MEDS: *HR* Heparin 5,000 UNIT/ML VIAL SQ SCH (06:02)
[2019-07-01] MEDS: Budesonide/Formoterol 80/4.5 1 PUFF INH IH SCH (08:02)
[2019-07-01] MEDS: Insulin LISPRO 300 UNITS/3 ML VIAL SQ SCH ×4 (08:10→11:53)
[2019-07-01 09:02] LABS: BUN/Creatinine Ratio 21 (6-26); Blood Urea Nitrogen 26 mg/dL (8-23); Calcium 9.5 mg/dL (8.6-10.3); Carbon Dioxide 27 mEq/L (23-29); Chloride 104 mEq/L (98-107); Glucose 128 mg/dL (70-105); Osmolality,Calculated 288 (280-300); Potassium 4.2 mEq/L (3.5-5.1); Sodium 136 mEq/L (136-145); eGFR For African Americans > 60 (> 60); eGFR For Non-African Americans 55 (> 60)
[2019-07-01] MEDS: rOPINIRole 1 MG TABLET PO SCH (09:06)
[2019-07-01] MEDS: Multivit/Ca/Min/Fe/FA 1 TAB TABLET PO SCH (09:06)
[2019-07-01] MEDS: Isosorbide MONOnitrate (24 HR) 60 MG TAB.ER.24H PO SCH (09:06)
--- NOTE | 2019-07-01 09:47 | Electrocardiograph Report ---
[facility] Test Date: 2019-06-29 Pat Name: Errol Hall Department: EXAM3 Room: 3B16 Gender: Pace Analyst: : [id number] Requested By: Kaz Joshua Order Number: [id number] Reading MD: Brandon Ramirez Measurements Intervals [place] Rate: 56 P: 18 MO: 188 QRS: -45 QRSD: 84 T: 38 QT: 435 QTc: 420 Interpretive Statements Sinus rhythm Anterolateral infarct, old Electronically Signed On 07-01-2019 9:45:53 EDT by Brandon Ramirez
--- NOTE | 2019-07-01 09:59 | Discharge Summary ---
- NOTES TO OUTPATIENT PROVIDER Notes to Outpatient Provider: f/u with Neurology within 2 weeks for restless leg syndrome and possible medication side effect ( causing syncope by Requip). F/u with PCP within a week. f/u with cardiology within a month. Date of Encounter: 07/01/19 Time of Encounter: 09:55 - Discharge Diagnosis (1) Syncope Priority: Primary Status: Acute Assessment and Plan: 84 year old male with Hx of fall and syncope presented with recurrent fall and syncope. He has extensive hx of CV diseases. EKG has no acute changes. CT head negative. Trop negative. Orthostatic BP POSITIVE. Pt instructed to maintain good hydration, increase salt intake as appropriate, change position slowly. We will not start pt on meds for orthostatic hypotension at this point. Tele trace reviewed, no malignant arrhythmia overnight. Continue monitoring. However, his syncope is suspicious to be caused by arrhythmia. Will ordere event monitor upon discharge. ECHO, stress test, and carotid doppler unremarkable. PT/OT recommended HH. Qualifiers: Syncope type: unspecified Qualified Code(s): R55 - Syncope and collapse (2) Falls Priority: Primary Status: Acute Assessment and Plan: No fracture. PT/OT recommended HH. Qualifiers: Encounter type: initial encounter Qualified Code(s): W19.XXXA - Unspecified fall, initial encounter (3) Coronary artery disease Priority: Secondary Status: Chronic Qualifiers: Coronary Disease-Associated Artery/Lesion type: bypass graft [place] vs. transplanted heart: unspecified whether [place] or transplanted heart Associated angina: without angina Qualified Code(s): I25.810 - Atherosclerosis of coronary artery bypass graft(s) without angina pectoris (4) Diabetes mellitus Priority: Secondary Status: Chronic Assessment and Plan: A1c 9.7, will increased lantius dose. f/u with PCP for better BG control and insulin adjustment. 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 Qualifiers: Hypertension type: essential hypertension Qualified Code(s): I10 - Essential (primary) hypertension (6) Hyperlipidemia Priority: Secondary Status: Chronic Qualifiers: Hyperlipidemia type: unspecified Qualified Code(s): E78.5 - Hyperlipidemia, unspecified (7) Orthostatic hypotension Priority: Primary Status: Chronic (8) RLS (restless legs syndrome) Priority: Secondary Status: Chronic (9) CKD (chronic kidney disease) Priority: Secondary Status: Chronic Qualifiers: Chronic kidney disease stage: stage 3 (moderate) Qualified Code(s): N18.3 - Chronic kidney disease, stage 3 (moderate) (10) DVT prophylaxis Priority: Primary Status: Acute Hospital course: Mr. Hall is a 84 year old male with psat medical history of orthostatic hypotenison, frequent falls, CAD, CHF, CKD, HTN, HLP, DM, and restless leg syndrome presented with another fall today. He woke up today and sit on the dinner table, finished breakfast and went out to gas station. He came back and sit by the table for a break, the next thing he remembered is that he was lying on the floor. He cannot recall how he fell and no one with him at that time. He denied any prodrome such as lightheadedness, chest pain, shortness of breath, body shaking. After he woke up on the floor he denied tongue biting, or loss control of bowel or bladder. He recently had another fall and was sent to [place] initially, then was transferred to [facility], He cannot recall any specific diagnosis was made. He has hx of CAD and CABG, has hx of restless leg syndrome and takes requip currently. He reported he had side effect with requip in the past but cannot specify what type of reaction. In the ED, VS were stable, Labs showed negative troponin, baseline CKD and elevated BG more than 300. He is admitted for further evaluation. Further workup showed negative serial troponin, and unremarkable EKG without ST- T changes. Carotid doppler showed non-stenotic plaque. ECHO and stress test were unremarkable. Orthostatic BP was positive and pt educated on hydration and increase of salt intake. He also reported that syncope and fall occurred after he started taking requip for RLS, I discussed the possibility of switching to another medicine, but he has tried several meds in the past and it seems requip is the only one working for him. I encouraged him to discuss this with neurology. The scenario of fall and syncope is very suspicious for arrhythmia related, although tele monitoring did not catch any concerning arrhythmia. We will order event monitor upon discharge. Pt is discharged [facility], a1c was 9.7 in this admission, dose of basal and bolus insulin were adjusted. He will f/u with PCP, neurology, and cardiology as scheduled. Discharge discussed with: patient Time spent discussing smoking cessation with patient: more than 10 minutes - Time Spent with Patient Total time spent providing and/or coordinating discharge services: Time spent: Greater than 30 minutes - Discharge Medications Prescriptions: Continued Potassium Chloride [K-Tab ER] 20 meq PO DAILY Albuterol Sulfate [Proair Hfa] 2 puff IH Q6H PRN PRN Reason: Shortness Of Breath Isosorbide MONOnitrate (24 HR) [Imdur] 60 mg PO DAILY Multivitamin [One Daily Multivitamin] 1 tab PO DAILY Ropinirole HCl [Requip] 4 mg PO QPM Simethicone [Gas-X] 160 mg PO QID PRN PRN Reason: Gas Ropinirole HCl [Requip] 2 mg PO QAM Budesonide/Formoterol 80/4.5 [Symbicort 80/4.5] 2 puff IH BID Sertraline [Zoloft] 50 mg PO DAILY Changed Insulin Glargine,Hum.rec.anlog [Lantus Solostar] 15 unit SQ HS #0 Insulin ASPART [Novolog Flexpen] 6 unit SQ TIDWM #0 Home Medications: Albuterol Sulfate [Proair Hfa] 2 puff IH Q6H PRN 03/31/16 [History] Potassium Chloride [K-Tab ER] 20 meq PO DAILY 03/31/16 [History] Isosorbide MONOnitrate (24 HR) [Imdur] 60 mg PO DAILY 06/28/18 [History] Multivitamin [One Daily Multivitamin] 1 tab PO DAILY 06/28/18 [History] Ropinirole HCl [Requip] 4 mg PO QPM 06/28/18 [History] Budesonide/Formoterol 80/4.5 [Symbicort 80/4.5] 2 puff IH BID 06/29/19 [Histo ry] Ropinirole HCl [Requip] 2 mg PO QAM 06/29/19 [History] Sertraline [Zoloft] 50 mg PO DAILY 06/29/19 [History] Simethicone [Gas-X] 160 mg PO QID PRN 06/29/19 [History] Insulin ASPART [Novolog Flexpen] 6 unit SQ TIDWM #0 07/01/19 [Rx] Insulin Glargine,Hum.rec.anlog [Lantus Solostar] 15 unit SQ HS #0 07/01/19 [Rx] Allergies/Adverse Reactions: Allergy/AdvReac Type Severity Reaction Status Date / Time doxycycline Allergy Hives Verified 06/28/18 12:51 enalaprilat [From Vasotec] Allergy Rash Verified 06/28/18 12:51 levofloxacin [From Levaquin] Allergy Hives Verified 06/28/18 12:51 Nefazodone [From Serzone] Allergy Hives Verified 06/28/18 12:51 ativan AdvReac Seizure Uncoded 06/28/18 12:51 Date of admission: 06/29/19 13:29 Primary care physician: [facility] Consults: 06/29/19 16:15 Consult to Physical Therapy [CONS] Routine Comment: Evaluate, develop and implement POC Reason for Consult: dc plan Does patient have active BEDREST order?: No Is patient medically & hemodynamically stable?: Yes Patient assessed for mobility or mobilized this visit?: Yes Anticipated date of discharge: 07/01/19 - Constitutional Vitals: Temp Pulse Resp BP Pulse Ox 97.7 F 52 17 149/74 95 07/01/19 07:43 07/01/19 07:43 07/01/19 07:43 07/01/19 07:43 07/01/19 07:43 General appearance: Present: A&O X 3 Exam: PHYSICAL EXAMINATION: GENERAL APPEARANCE: The patient is alert, oriented and in no acute distress. HEENT: Head is normocephalic. The sinuses are nontender. Pupils are equal and reactive. The nares are patent. Oropharynx clear without lesions. NECK: Supple without lymphadenopathy. HEART: Regular rate and rhythm. LUNGS: No crackles or wheezes are heard. ABDOMEN: Soft, nontender, nondistended with good bowel sounds heard. Inguinal area is normal. EXTREMITIES: Without cyanosis, clubbing or edema. NEUROLOGICAL: Gross nonfocal. SKIN: Warm and dry without any rash. - Patient Status Disposition: Home Health Service Condition: Fair Functional capacity at discharge: independent ambulation Overall status at discharge: patient is progressing back to baseline - Discharge Instructions [facility] Up With: [facility] [Primary Care Provider[facility] - - Diet and Activity Activity: increase activity as tolerated Diet: diabetic diet, low fat, low cholesterol, low salt diet
--- NOTE | 2019-07-01 10:22 | Physician Discharge Referral ---
Home Health/Hosp Referral Info Transfer to: Home Health Provider in Charge Post Discharge: PCP - Diagnosis (1) Syncope Priority: Primary Status: Acute (2) Falls Priority: Primary Status: Acute (3) Coronary artery disease Priority: Secondary Status: Chronic (4) Diabetes mellitus Priority: Secondary Status: Chronic (5) Hypertension Priority: Secondary Status: Chronic (6) Hyperlipidemia Priority: Secondary Status: Chronic (7) Orthostatic hypotension Priority: Secondary Status: Chronic (8) RLS (restless legs syndrome) Priority: Secondary Status: Chronic (9) CKD (chronic kidney disease) Priority: Secondary Status: Chronic (10) DVT prophylaxis Priority: Primary Status: Acute - Respiratory Orders Smoking Cessation: Smoking cessation has been advised. For more information, call the [place] Tobacco Quit Line at 8-020-WZEE-NOW. - Services Needed Following services are medically necessary services: Nursing, Home Health Aide, Physical Therapy, Occupational Therapy - Transfer Medications Home Medications: Albuterol Sulfate [Proair Hfa] 2 puff IH Q6H PRN 03/31/16 [History] Potassium Chloride [K-Tab ER] 20 meq PO DAILY 03/31/16 [History] Isosorbide MONOnitrate (24 HR) [Imdur] 60 mg PO DAILY 06/28/18 [History] Multivitamin [One Daily Multivitamin] 1 tab PO DAILY 06/28/18 [History] Ropinirole HCl [Requip] 4 mg PO QPM 06/28/18 [History] Budesonide/Formoterol 80/4.5 [Symbicort 80/4.5] 2 puff IH BID 06/29/19 [History] Ropinirole HCl [Requip] 2 mg PO QAM 06/29/19 [History] Sertraline [Zoloft] 50 mg PO DAILY 06/29/19 [History] Simethicone [Gas-X] 160 mg PO QID PRN 06/29/19 [History] Insulin ASPART [Novolog Flexpen] 6 unit SQ TIDWM #0 07/01/19 [Rx] Insulin Glargine,Hum.rec.anlog [Lantus Solostar] 15 unit SQ HS #0 07/01/19 [Rx] Allergies/Adverse Reactions: Allergy/AdvReac Type Severity Reaction Status Date / Time doxycycline Allergy Hives Verified 06/28/18 12:51 enalaprilat [From Vasotec] Allergy Rash Verified 06/28/18 12:51 levofloxacin [From Levaquin] Allergy Hives Verified 06/28/18 12:51 Nefazodone [From Serzone] Allergy Hives Verified 06/28/18 12:51 ativan AdvReac Seizure Uncoded 06/28/18 12:51 Certification: Further, I certify that my clinical findings support that this patient is homebound (i.e. absences from home require considerable and taxing effort and are for medical reasons or gnosticism services or infrequently or short duration when for other reasons) because: Homebound Reason: Patient requires assistance of a person or device to safely leave home Attestation: My signature below is to certify that this patient is under my care and that I, or nurse practitioner, or a physician's perinatal breastfeeding assistant working with me, has a [id number] encounter with this patient.
[2019-07-01 11:38] VITALS: BP 119/66
== END 2019-07-01 13:31 | disposition home health service (06) ==
LOC: 3BNU 10:57 → EMEROOARM 10:57 → 3BNU 16:14
PROVIDERS: ADMIT Internal Medicine; ATTEND Internal Medicine

== ENCOUNTER 2019-07-04 22:04 | Observation (INO) ==
[2019-07-04] MEDS ORDERED: Neosporin OINT 1 APPL PACKET TP ONE (23:58)
[2019-07-05 01:20] LABS: Basophils % 0.6 %; Eosinophils # 0.2 K/mcL (0.0-0.6); Eosinophils % 5.1 %; Hematocrit 39.9 % (37.5-50.1); Hemoglobin 13.2 g/dL (12.9-16.9); Immature Granulocytes % 0.2 % (0-4); Lymphocytes # 0.7 K/mcL (0.6-4.6); Lymphocytes % 13.8 %; Mean Corpuscular HGB Conc 33.1 g/dL (31.6-35.5); Mean Corpuscular Hemoglobin 31.1 pg (28.0-33.3); Mean Corpuscular Volume 93.9 fL (83.0-100.0); Mean Platelet Volume 10.4 fL (9.4-12.4); Monocytes # 0.6 K/mcL (0.0-1.3); Monocytes % 12.3 %; Neutrophils # 3.2 K/mcL (1.6-8.9); Platelet Count 125 K/mcL (140-400); Red Blood Count 4.25 M/mcL (4.19-5.50); Red Cell Distribution Width 13.3 % (11.5-14.5); White Blood Count 4.7 K/mcL (4.3-11.1)
[2019-07-05 01:53] LABS: BUN/Creatinine Ratio 19 (6-26); Blood Urea Nitrogen 27 mg/dL (8-23); Carbon Dioxide 28 mEq/L (23-29); Chloride 105 mEq/L (98-107); Glucose 296 mg/dL (70-105); Osmolality,Calculated 302 (280-300); Potassium 4.2 mEq/L (3.5-5.1); Sodium 138 mEq/L (136-145); Troponin I < 0.03 ng/mL (< 0.04); eGFR For African Americans 58 (> 60); eGFR For Non-African Americans 48 (> 60)
[2019-07-05] MEDS ORDERED: Naloxone 0.4 MG/ML INJ IVP PRN (03:42)
[2019-07-05] MEDS ORDERED: 0.9 % Sodium Chloride 1,000 ML IVC SCH (03:45)
[2019-07-05] MEDS ORDERED: Simethicone 80 MG TAB.CHEW PO PRN (03:46)
[2019-07-05] MEDS ORDERED: *HR* Dextrose 50 % in Water (Syg) 50 ML SYRINGE IVP PRN (03:50)
[2019-07-05] MEDS ORDERED: D5% in Water 1,000 ML IVC PRN (03:50)
[2019-07-05] MEDS ORDERED: Dextrose Gel 15 GM/37.5 ML TUBE PO PRN ×2 (03:50)
[2019-07-05 07:21] LABS: Alanine Aminotransferase 89 Units/L (7-52); Albumin 3.7 g/dL (3.5-5.7); Albumin/Globulin Ratio 1.4 (1.1-2.2); Alkaline Phosphatase 74 Units/L (34-104); Aspartate Amino Transferase 73 Units/L (13-39); BUN/Creatinine Ratio 20 (6-26); Bilirubin,Total 1.1 mg/dL (0.3-1.0); Blood Urea Nitrogen 25 mg/dL (8-23); Carbon Dioxide 26 mEq/L (23-29); Chloride 105 mEq/L (98-107); Globulin 2.7 g/dL (2.4-3.5); Glucose 185 mg/dL (70-105); Osmolality,Calculated 295 (280-300); Potassium 3.8 mEq/L (3.5-5.1); Sodium 138 mEq/L (136-145); Total Protein 6.4 g/dL (6.4-8.9); eGFR For African Americans > 60 (> 60); eGFR For Non-African Americans 56 (> 60)
[2019-07-05] MEDS: Insulin LISPRO 300 UNITS/3 ML VIAL SQ SCH ×3 (08:24→17:02)
[2019-07-05] MEDS: rOPINIRole 1 MG TABLET PO SCH (08:24)
[2019-07-05] MEDS: Multivit/Ca/Min/Fe/FA 1 TAB TABLET PO SCH (08:24)
[2019-07-05] MEDS: Budesonide/Formoterol 80/4.5 1 PUFF INH IH SCH ×2 (10:36→20:10)
[2019-07-05] MEDS ORDERED: Acetaminophen 325 MG TABLET PO PRN (14:09)
[2019-07-05] MEDS ORDERED: rOPINIRole 1 MG TABLET PO SCH (18:00)
[2019-07-05] MEDS ORDERED: Insulin DETEMIR 100 UNIT/ML X5UNITS SQ SCH (21:00)
[2019-07-06 06:52] LABS: Hematocrit 41.4 % (37.5-50.1); Hemoglobin 13.9 g/dL (12.9-16.9); Mean Corpuscular HGB Conc 33.6 g/dL (31.6-35.5); Mean Corpuscular Hemoglobin 31.2 pg (28.0-33.3); Mean Corpuscular Volume 92.8 fL (83.0-100.0); Mean Platelet Volume 10.8 fL (9.4-12.4); Platelet Count 124 K/mcL (140-400); Red Blood Count 4.46 M/mcL (4.19-5.50); Red Cell Distribution Width 13.1 % (11.5-14.5)
[2019-07-06 06:58] VITALS: BP 134/63
[2019-07-06 07:12] LABS: BUN/Creatinine Ratio 20 (6-26); Blood Urea Nitrogen 22 mg/dL (8-23); Carbon Dioxide 26 mEq/L (23-29); Chloride 106 mEq/L (98-107); Glucose 200 mg/dL (70-105); Osmolality,Calculated 285 (280-300); Sodium 133 mEq/L (136-145); eGFR For African Americans > 60 (> 60); eGFR For Non-African Americans > 60 (> 60)
[2019-07-06] MEDS: Budesonide/Formoterol 80/4.5 1 PUFF INH IH SCH (07:58)
[2019-07-06] MEDS: Multivit/Ca/Min/Fe/FA 1 TAB TABLET PO SCH (08:11)
[2019-07-06] MEDS: Insulin LISPRO 300 UNITS/3 ML VIAL SQ SCH ×2 (08:12→12:14)
[2019-07-06] MEDS: rOPINIRole 1 MG TABLET PO SCH (08:12)
== END 2019-07-06 14:48 | disposition home or self-care (01) ==
LOC: EMEROOARM 22:04 → 2ANU 22:04 → SUATTDRO 07-05 03:10 → 2ANU 07-05 03:30
PROVIDERS: ADMIT Internal Medicine; ATTEND Family Medicine

== ENCOUNTER 2020-08-11 14:43 | Inpatient (IN) ==
[2020-08-11] MEDS ORDERED: Isovue-370 500 ML BOTTLE IVP ONE ×2 (17:34→19:01)
[2020-08-11 18:29] LABS: BUN/Creatinine Ratio 17 (6-26); Blood Urea Nitrogen 20 mg/dL (8-23); Calcium 9.2 mg/dL (8.6-10.3); Carbon Dioxide 28 mEq/L (23-29); Chloride 98 mEq/L (98-107); Glucose 224 mg/dL (70-105); Osmolality,Calculated 288 (280-300); Sodium 134 mEq/L (136-145); eGFR For African Americans > 60 (> 60); eGFR For Non-African Americans 57 (> 60)
[2020-08-11 18:33] LABS: Basophils % 0.4 %; Eosinophils # 0.3 K/mcL (0.0-0.6); Eosinophils % 2.7 %; Hematocrit 41.9 % (37.5-50.1); Hemoglobin 14.2 g/dL (12.9-16.9); Immature Granulocytes % 0.3 % (0-4); Lymphocytes # 0.7 K/mcL (0.6-4.6); Lymphocytes % 6.4 %; Mean Corpuscular HGB Conc 33.9 g/dL (31.6-35.5); Mean Corpuscular Hemoglobin 31.3 pg (28.0-33.3); Mean Corpuscular Volume 92.3 fL (83.0-100.0); Mean Platelet Volume 10.3 fL (9.4-12.4); Monocytes # 1.1 K/mcL (0.0-1.3); Monocytes % 10.2 %; Neutrophils # 8.4 K/mcL (1.6-8.9); Platelet Count 147 K/mcL (140-400); Red Blood Count 4.54 M/mcL (4.19-5.50); Red Cell Distribution Width 12.5 % (11.5-14.5); White Blood Count 10.4 K/mcL (4.3-11.1)
[2020-08-11] MEDS ORDERED: cefTRIAXone 1,000 MG in Water for inj. (sterile) 10 ML IVP ONE (20:18)
[2020-08-11] MEDS ORDERED: 0.9 % Sodium Chloride 1,000 ML IVC ONE (22:50)
[2020-08-11 23:42] LABS: Bacteria,Urine Few per hpf (None-Few); Bilirubin,Urine Negative (Negative); Blood,Urine Negative (Negative); Clarity,Urine Clear (Clear); Color,Urine Yellow (Yellow); Glucose,Urine (UA) 500 mg/dL (Normal); Ketones,Urine Negative (Negative); Leukocyte Esterase,Urine Negative (Negative); Nitrite,Urine Negative (Negative); Protein,Urine 30 mg/dL (Neg-Trace); Specific Gravity,Urine 1.021 (1.010-1.025); Urobilinogen,Urine Normal (Normal); WBC,Urine 0-3 per hpf (0-3)
[2020-08-12 03:13] LABS: Adenovirus Not Detected (Not Detect); Bordetella Pertussis Not Detected (Not Detect); Chlamydophila pneumoniae Not Detected (Not Detect); Coronavirus 229E Not Detected (Not Detect); Coronavirus HKU1 Not Detected (Not Detect); Coronavirus NL63 Not Detected (Not Detect); Coronavirus OC43 Not Detected (Not Detect); Human Metapneumovirus Not Detected (Not Detect); Human Rhinovirus/Enterovirus Not Detected (Not Detect); Influenza A Subtype 2009 H1 Not Detected (Not Detect); Influenza B Not Detected (Not Detect); Mycoplasma pneumoniae Not Detected (Not Detect); Parainfluenza Virus 1 Not Detected (Not Detect); Parainfluenza Virus 2 Not Detected (Not Detect); Parainfluenza Virus 3 Not Detected (Not Detect); Parainfluenza Virus 4 Not Detected (Not Detect); Respiratory Syncytial Virus Not Detected (Not Detect); SARS-CoV-2 Not Detected (Not Detect)
[2020-08-12] MEDS ORDERED: Ondansetron ODT 4 MG TAB.RAPDIS SL PRN ×2 (04:54→13:24)
[2020-08-12] MEDS ORDERED: Naloxone 0.4 MG/ML INJ IVP PRN ×2 (04:54→13:24)
[2020-08-12] MEDS ORDERED: Acetaminophen 325 MG TABLET PO PRN (04:54)
[2020-08-12] MEDS ORDERED: 0.9 % Sodium Chloride 1,000 ML IVC SCH (05:00)
[2020-08-12 06:36] LABS: INR 1.3
[2020-08-12] MEDS ORDERED: Isosorbide MONOnitrate (24 HR) 60 MG TAB.ER.24H PO SCH (09:00)
[2020-08-12] MEDS ORDERED: rOPINIRole 1 MG TABLET PO SCH (09:00)
[2020-08-12] MEDS ORDERED: cefTRIAXone 1,000 MG in 0.9 % Sodium Chloride Mini Bag 100 ML IVPB SCH (09:00)
[2020-08-12] MEDS ORDERED: Ibuprofen 600 MG TABLET PO PRN ×2 (09:37→13:24)
[2020-08-12] MEDS ORDERED: Budesonide/Formoterol 80/4.5 1 PUFF INH IH SCH (10:00)
[2020-08-12] MEDS ORDERED: Vancomycin 1,500 MG/265 ML IV.SOLN IVPB SCH (11:00)
[2020-08-12] MEDS ORDERED: Lidocaine/EPI 1:100k 1% 20 ML VIAL ONE (11:00)
[2020-08-12] MEDS ORDERED: Ondansetron 4 MG/2 ML VIAL IVP PRN (11:21)
[2020-08-12] MEDS ORDERED: Morphine Sulfate 2 MG/ML SYRINGE IVP PRN (11:21)
[2020-08-12] MEDS ORDERED: *HR* OxyCODONE Immed Rel 5 MG TABLET PO PRN (11:21)
[2020-08-12] MEDS ORDERED: Famotidine 20 MG/2 ML VIAL ONE (11:26)
[2020-08-12] MEDS ORDERED: Dexamethasone 4 MG/ML VIAL ONE (11:58)
[2020-08-12] MEDS ORDERED: *HR* FentaNYL (PF) 100 MCG/2 ML VIAL ONE (11:58)
[2020-08-12] MEDS ORDERED: Lidocaine -MPF 2% 2 ML VIAL ONE (11:58)
[2020-08-12] MEDS ORDERED: Ondansetron 4 MG/2 ML VIAL ONE (11:58)
[2020-08-12] MEDS ORDERED: *HR* Propofol 200 MG/20 ML VIAL IVP ONE (11:59)
[2020-08-12] MEDS ORDERED: Isovue-370 500 ML BOTTLE IVP ONE (13:24)
[2020-08-12] MEDS: 0.9 % Sodium Chloride 1,000 ML IVC SCH ×2 (14:50→21:28)
[2020-08-12] MEDS ORDERED: NON-FORMULARY MEDICATION 1 EACH EACH (Ropinirole Hcl [Requip] 4 MG) PO SCH (18:00)
[2020-08-12] MEDS: Budesonide/Formoterol 80/4.5 1 PUFF INH IH SCH (20:13)
[2020-08-12] MEDS ORDERED: Insulin DETEMIR 100 UNIT/ML X5UNITS SQ SCH ×2 (21:00)
[2020-08-12] MEDS ORDERED: rOPINIRole 1 MG, rOPINIRole 3 MG PO SCH ×2 (21:00)
[2020-08-13 06:58] LABS: Basophils % 0.2 %; Hematocrit 36.6 % (37.5-50.1); Immature Granulocytes % 0.6 % (0-4); Lymphocytes # 0.5 K/mcL (0.6-4.6); Lymphocytes % 5.9 %; Mean Corpuscular Hemoglobin 30.1 pg (28.0-33.3); Mean Corpuscular Volume 94.1 fL (83.0-100.0); Mean Platelet Volume 10.5 fL (9.4-12.4); Monocytes # 0.8 K/mcL (0.0-1.3); Monocytes % 8.8 %; Neutrophils # 7.5 K/mcL (1.6-8.9); Platelet Count 145 K/mcL (140-400); Red Blood Count 3.89 M/mcL (4.19-5.50); Red Cell Distribution Width 12.8 % (11.5-14.5); Segmented Neutrophils % 84.5 %; White Blood Count 8.9 K/mcL (4.3-11.1)
[2020-08-13 07:00] LABS: Hemoglobin 11.7 g/dL (12.9-16.9)
[2020-08-13 07:13] VITALS: BP 129/84
[2020-08-13 07:13] LABS: BUN/Creatinine Ratio 21 (6-26); Blood Urea Nitrogen 24 mg/dL (8-23); Calcium 8.3 mg/dL (8.6-10.3); Carbon Dioxide 23 mEq/L (23-29); Chloride 106 mEq/L (98-107); Glucose 287 mg/dL (70-105); Magnesium 2.2 mg/dL (1.6-2.6); Osmolality,Calculated 295 (280-300); Phosphorous 2.8 mg/dL (2.7-4.5); Potassium 4.6 mEq/L (3.5-5.1); Sodium 135 mEq/L (136-145); eGFR For African Americans > 60 (> 60); eGFR For Non-African Americans 60 (> 60)
[2020-08-13] MEDS: Budesonide/Formoterol 80/4.5 1 PUFF INH IH SCH (07:26)
[2020-08-13] MEDS ORDERED: *HR* Dextrose 50 % in Water (Vial) 50 ML VIAL IVP PRN (08:27)
[2020-08-13] MEDS ORDERED: D5% in Water 1,000 ML IVC PRN (08:27)
[2020-08-13] MEDS ORDERED: Dextrose Gel 15 GM/37.5 ML TUBE PO PRN ×2 (08:27)
[2020-08-13] MEDS ORDERED: cefTRIAXone 1,000 MG in 0.9 % Sodium Chloride Mini Bag 100 ML IVPB SCH (09:00)
[2020-08-13] MEDS ORDERED: rOPINIRole 1 MG TABLET PO SCH (09:00)
[2020-08-13] MEDS ORDERED: Isosorbide MONOnitrate (24 HR) 60 MG TAB.ER.24H PO SCH (09:00)
[2020-08-13] MEDS ORDERED: cefTRIAXone 1,000 MG in Water for inj. (sterile) 10 ML IVP SCH (09:00)
[2020-08-13 10:44] LABS: Estimated Average Glucose 312 mg/dl
[2020-08-13] MEDS ORDERED: Vancomycin 1,500 MG/265 ML IV.SOLN IVPB SCH (11:00)
[2020-08-13] MEDS ORDERED: Insulin LISPRO 300 UNITS/3 ML VIAL SQ SCH ×2 (11:30→21:00)
[2020-08-13] MEDS ORDERED: Linezolid 600 MG TABLET PO SCH (14:00)
== END 2020-08-13 16:18 | disposition home health service (06) | DRG 988 ==
LOC: EMEROOARM 14:43 → 3ANU 14:43
PROVIDERS: ADMIT Internal Medicine; ATTEND Internal Medicine

== ENCOUNTER 2020-11-22 15:55 | Inpatient (IN) ==
[2020-11-22] MEDS ORDERED: Vancomycin 1,500 MG/265 ML IV.SOLN IVPB ONE (16:13)
[2020-11-22] MEDS ORDERED: *HR* FentaNYL (PF) 100 MCG/2 ML VIAL IVP ONE (16:25)
[2020-11-22 16:55] LABS: Basophils % 0.6 %; Eosinophils % 3.4 %; Immature Granulocytes % 0.4 % (0-4); Mean Platelet Volume 10.6 fL (9.4-12.4); Platelet Count 139 K/mcL (140-400)
[2020-11-22 16:57] LABS: Eosinophils # 0.2 K/mcL (0.0-0.6); Hematocrit 39.3 % (37.5-50.1); Hemoglobin 13.2 g/dL (12.9-16.9); Immature Platelets 4.3 % (1.1-6.1); Lymphocytes # 0.5 K/mcL (0.6-4.6); Lymphocytes % 7.6 %; Mean Corpuscular HGB Conc 33.6 g/dL (31.6-35.5); Mean Corpuscular Hemoglobin 30.8 pg (28.0-33.3); Mean Corpuscular Volume 91.6 fL (83.0-100.0); Monocytes % 10.5 %; Neutrophils # 5.5 K/mcL (1.6-8.9); Red Blood Count 4.29 M/mcL (4.19-5.50); Segmented Neutrophils % 77.5 %; White Blood Count 7.1 K/mcL (4.3-11.1)
[2020-11-22 16:58] LABS: Monocytes # 0.8 K/mcL (0.0-1.3)
[2020-11-22 17:12] LABS: BUN/Creatinine Ratio 22 (6-26); Blood Urea Nitrogen 29 mg/dL (8-23); Calcium 9.7 mg/dL (8.6-10.3); Carbon Dioxide 28 mEq/L (23-29); Chloride 99 mEq/L (98-107); Glucose 304 mg/dL (70-105); Osmolality,Calculated 299 (280-300); Potassium 3.7 mEq/L (3.5-5.1); Sodium 136 mEq/L (136-145); eGFR For African Americans > 60 (> 60); eGFR For Non-African Americans 52 (> 60)
[2020-11-22] MEDS ORDERED: *HR* HYDROmorphone (PF) 1 MG/ML SYRINGE IVP ONE (18:28)
[2020-11-22] MEDS ORDERED: Dextrose Gel 15 GM/37.5 ML TUBE PO PRN ×2 (19:09)
[2020-11-22] MEDS ORDERED: D5% in Water 1,000 ML IVC PRN (19:09)
[2020-11-22] MEDS ORDERED: *HR* Dextrose 50 % in Water (Vial) 50 ML VIAL IVP PRN (19:09)
[2020-11-22] MEDS ORDERED: Naloxone 0.4 MG/ML INJ IVP PRN (19:25)
[2020-11-22] MEDS ORDERED: Acetaminophen 325 MG TABLET PO PRN (19:25)
[2020-11-22] MEDS ORDERED: Ondansetron 4 MG/2 ML VIAL IVP PRN (19:25)
[2020-11-22] MEDS ORDERED: Insulin LISPRO 300 UNITS/3 ML VIAL SUBQ SCH (21:00)
[2020-11-22] MEDS: *HR* Heparin 5,000 UNIT/ML VIAL SQ SCH (22:01)
[2020-11-22] MEDS ORDERED: Albuterol 2.5 MG/3 ML NEBULIZER IH PRN (23:04)
[2020-11-22] MEDS: rOPINIRole 1 MG TABLET PO SCH (23:52)
[2020-11-23 00:33] LABS: Red Cell Distribution Width 12.9 % (11.5-14.5)
[2020-11-23 00:35] LABS: Hematocrit 37.4 % (37.5-50.1); Hemoglobin 12.7 g/dL (12.9-16.9); Immature Platelets 4.4 % (1.1-6.1); Mean Corpuscular Hemoglobin 30.8 pg (28.0-33.3); Mean Corpuscular Volume 90.8 fL (83.0-100.0); Mean Platelet Volume 10.6 fL (9.4-12.4); Red Blood Count 4.12 M/mcL (4.19-5.50); White Blood Count 8.3 K/mcL (4.3-11.1)
[2020-11-23 00:52] LABS: Blood Urea Nitrogen 29 mg/dL (8-23); Calcium 9.3 mg/dL (8.6-10.3); Carbon Dioxide 30 mEq/L (23-29); Chloride 100 mEq/L (98-107); Chol/HDL Ratio 3.2 (0-4.9); Cholesterol 116 mg/dL (< 200); Glucose 213 mg/dL (70-105); HDL Cholesterol 36 mg/dL (40-59); LDL Cholesterol,Calculated 54 mg/dL (< 100); Magnesium 1.7 mg/dL (1.6-2.6); Osmolality,Calculated 296 (280-300); Potassium 3.7 mEq/L (3.5-5.1); Sodium 137 mEq/L (136-145); Triglycerides 132 mg/dL (< 150)
[2020-11-23 00:54] LABS: BUN/Creatinine Ratio 23 (6-26); eGFR For African Americans > 60 (> 60); eGFR For Non-African Americans 53 (> 60)
[2020-11-23 01:12] LABS: Estimated Average Glucose 237 mg/dl; Hemoglobin A1C 9.9 %
[2020-11-23] MEDS: *HR* Heparin 5,000 UNIT/ML VIAL SQ SCH ×3 (05:52→20:57)
[2020-11-23] MEDS ORDERED: Cholecalciferol (D-3) 1,000 UNIT (25MCG) TABLET PO SCH (09:00)
[2020-11-23] MEDS: Torsemide 20 MG TABLET PO SCH (09:31)
[2020-11-23] MEDS: Gabapentin 100 MG CAPSULE PO SCH ×2 (09:31→20:55)
[2020-11-23] MEDS: Multivit/Ca/Min/Fe/FA 1 TAB TABLET PO SCH (09:31)
[2020-11-23] MEDS: rOPINIRole 1 MG TABLET PO SCH ×2 (09:31→20:56)
[2020-11-23] MEDS: Isosorbide MONOnitrate (24 HR) 30 MG TAB.ER.24H PO SCH (09:31)
[2020-11-23] MEDS: Aspirin Enteric Coated 81 MG Tablet PO SCH (09:31)
[2020-11-23] MEDS: Insulin LISPRO 300 UNITS/3 ML VIAL SUBQ SCH ×3 (09:31→16:29)
[2020-11-23] MEDS: Loratadine 10 MG TABLET PO SCH (09:31)
[2020-11-23] MEDS: Budesonide/Formoterol 80/4.5 1 PUFF INH IH SCH ×2 (11:01→20:06)
[2020-11-23] MEDS: Piperacillin/Tazobactam 3.375 GM in 0.9 % Sodium Chloride Mini Bag 100 ML IVPB SCH ×2 (12:21→18:23)
[2020-11-23] MEDS: Clotrimazole/Betameth Dip CRM 45 APPL/45 GM TUBE TP SCH ×2 (16:27→20:57)
[2020-11-23] MEDS ORDERED: Vancomycin 1,250 MG/262.5 ML IV.SOLN IVPB SCH (17:00)
[2020-11-23] MEDS ORDERED: Insulin DETEMIR 100 UNIT/ML X5UNITS SUBQ SCH (21:00)
[2020-11-23] MEDS ORDERED: Piperacillin/Tazobactam 3.375 GM in 0.9 % Sodium Chloride Mini Bag 100 ML IVPB SCH (21:00)
[2020-11-24] MEDS: Piperacillin/Tazobactam 3.375 GM in 0.9 % Sodium Chloride Mini Bag 100 ML IVPB SCH ×3 (02:44→18:19)
[2020-11-24 04:46] LABS: Hematocrit 38.5 % (37.5-50.1); Hemoglobin 12.7 g/dL (12.9-16.9); Mean Corpuscular Hemoglobin 30.8 pg (28.0-33.3); Mean Corpuscular Volume 93.2 fL (83.0-100.0); Mean Platelet Volume 10.6 fL (9.4-12.4); Platelet Count 149 K/mcL (140-400); Red Blood Count 4.13 M/mcL (4.19-5.50); White Blood Count 7.2 K/mcL (4.3-11.1)
[2020-11-24 04:55] LABS: Calcium 9.3 mg/dL (8.6-10.3); Potassium 3.7 mEq/L (3.5-5.1)
[2020-11-24] MEDS: *HR* Heparin 5,000 UNIT/ML VIAL SQ SCH ×3 (05:11→20:55)
[2020-11-24] MEDS: Budesonide/Formoterol 80/4.5 1 PUFF INH IH SCH ×2 (07:30→20:12)
[2020-11-24] MEDS: Insulin LISPRO 300 UNITS/3 ML VIAL SUBQ SCH ×3 (08:12→16:47)
[2020-11-24] MEDS: Clotrimazole/Betameth Dip CRM 45 APPL/45 GM TUBE TP SCH ×3 (08:47→20:38)
[2020-11-24] MEDS: rOPINIRole 1 MG TABLET PO SCH ×2 (08:48→20:35)
[2020-11-24] MEDS: Gabapentin 100 MG CAPSULE PO SCH ×2 (08:48→20:35)
[2020-11-24] MEDS: Cholecalciferol (D-3) 1,000 UNIT (25MCG) TABLET PO SCH (08:48)
[2020-11-24] MEDS: Aspirin Enteric Coated 81 MG Tablet PO SCH (08:48)
[2020-11-24] MEDS: Torsemide 20 MG TABLET PO SCH (08:48)
[2020-11-24] MEDS: Isosorbide MONOnitrate (24 HR) 30 MG TAB.ER.24H PO SCH (08:48)
[2020-11-24] MEDS: Loratadine 10 MG TABLET PO SCH (08:48)
[2020-11-24] MEDS: Multivit/Ca/Min/Fe/FA 1 TAB TABLET PO SCH (08:48)
[2020-11-24] MEDS: Insulin DETEMIR 100 UNIT/ML X5UNITS SUBQ SCH (20:34)
[2020-11-25 03:19] LABS: Basophils % 0.5 %; Eosinophils # 0.4 K/mcL (0.0-0.6); Eosinophils % 4.6 %; Hematocrit 39.6 % (37.5-50.1); Hemoglobin 13.2 g/dL (12.9-16.9); Immature Granulocytes % 0.4 % (0-4); Lymphocytes # 0.6 K/mcL (0.6-4.6); Lymphocytes % 7.3 %; Mean Corpuscular HGB Conc 33.3 g/dL (31.6-35.5); Mean Corpuscular Hemoglobin 30.9 pg (28.0-33.3); Mean Corpuscular Volume 92.7 fL (83.0-100.0); Mean Platelet Volume 10.7 fL (9.4-12.4); Monocytes # 0.9 K/mcL (0.0-1.3); Monocytes % 11.3 %; Neutrophils # 5.9 K/mcL (1.6-8.9); Platelet Count 153 K/mcL (140-400); Red Blood Count 4.27 M/mcL (4.19-5.50); Red Cell Distribution Width 12.9 % (11.5-14.5); Segmented Neutrophils % 75.9 %; White Blood Count 7.8 K/mcL (4.3-11.1)
[2020-11-25] MEDS: Piperacillin/Tazobactam 3.375 GM in 0.9 % Sodium Chloride Mini Bag 100 ML IVPB SCH ×4 (03:35→23:38)
[2020-11-25 04:36] LABS: Calcium 9.1 mg/dL (8.6-10.3); Potassium 4.4 mEq/L (3.5-5.1)
[2020-11-25] MEDS: *HR* Heparin 5,000 UNIT/ML VIAL SQ SCH ×3 (05:20→20:30)
[2020-11-25] MEDS: Budesonide/Formoterol 80/4.5 1 PUFF INH IH SCH ×2 (08:00→20:04)
[2020-11-25] MEDS: Insulin LISPRO 300 UNITS/3 ML VIAL SUBQ SCH ×3 (08:45→16:42)
[2020-11-25] MEDS: Multivit/Ca/Min/Fe/FA 1 TAB TABLET PO SCH (09:27)
[2020-11-25] MEDS: Cholecalciferol (D-3) 1,000 UNIT (25MCG) TABLET PO SCH (09:27)
[2020-11-25] MEDS: Aspirin Enteric Coated 81 MG Tablet PO SCH (09:28)
[2020-11-25] MEDS: Loratadine 10 MG TABLET PO SCH (09:28)
[2020-11-25] MEDS: Isosorbide MONOnitrate (24 HR) 30 MG TAB.ER.24H PO SCH (09:28)
[2020-11-25] MEDS: Gabapentin 100 MG CAPSULE PO SCH ×2 (09:28→20:29)
[2020-11-25] MEDS: rOPINIRole 1 MG TABLET PO SCH ×2 (09:28→20:29)
[2020-11-25] MEDS: Clotrimazole/Betameth Dip CRM 45 APPL/45 GM TUBE TP SCH ×3 (09:29→20:43)
[2020-11-25] MEDS: Insulin DETEMIR 100 UNIT/ML X5UNITS SUBQ SCH (20:30)
[2020-11-26] MEDS: *HR* Heparin 5,000 UNIT/ML VIAL SQ SCH (05:31)
[2020-11-26 07:26] VITALS: BP 171/85
[2020-11-26] MEDS: Loratadine 10 MG TABLET PO SCH (08:17)
[2020-11-26] MEDS: Aspirin Enteric Coated 81 MG Tablet PO SCH (08:17)
[2020-11-26] MEDS: Gabapentin 100 MG CAPSULE PO SCH (08:17)
[2020-11-26] MEDS: rOPINIRole 1 MG TABLET PO SCH (08:17)
[2020-11-26] MEDS: Isosorbide MONOnitrate (24 HR) 30 MG TAB.ER.24H PO SCH (08:17)
[2020-11-26] MEDS: Cholecalciferol (D-3) 1,000 UNIT (25MCG) TABLET PO SCH (08:17)
[2020-11-26] MEDS: Multivit/Ca/Min/Fe/FA 1 TAB TABLET PO SCH (08:17)
[2020-11-26] MEDS: Piperacillin/Tazobactam 3.375 GM in 0.9 % Sodium Chloride Mini Bag 100 ML IVPB SCH (08:18)
[2020-11-26] MEDS: Clotrimazole/Betameth Dip CRM 45 APPL/45 GM TUBE TP SCH (08:19)
[2020-11-26] MEDS: Insulin LISPRO 300 UNITS/3 ML VIAL SUBQ SCH ×2 (08:55→12:15)
[2020-11-26 09:24] LABS: Calcium 9.1 mg/dL (8.6-10.3); Potassium 4.1 mEq/L (3.5-5.1)
[2020-11-26] MEDS: Budesonide/Formoterol 80/4.5 1 PUFF INH IH SCH (10:37)
== END 2020-11-26 13:10 | disposition home or self-care (01) | DRG 638 ==
LOC: 3ANU 15:55 → EMEROOARM 15:55 → SUATTDRO 18:44 → 3ANU 19:52
PROVIDERS: ADMIT Internal Medicine; ATTEND Internal Medicine

== ENCOUNTER 2021-02-15 17:01 | Observation (INO) ==
[2021-02-15] MEDS ORDERED: 0.9 % Sodium Chloride 1,000 ML IVC ONE (17:43)
[2021-02-15] MEDS ORDERED: Insulin LISPRO 300 UNITS/3 ML VIAL SUBQ ONE (17:43)
[2021-02-15 17:55] LABS: VBG HCO3 29 mEq/L (21-27); VBG PCO2 50 mmHg (41-51); VBG PH 7.38 pH Units (7.32-7.42); VBG PO2 58 mmHg (25-50)
[2021-02-15 17:55] LABS: Basophils % 0.7 %; Eosinophils # 0.2 K/mcL (0.0-0.6); Eosinophils % 5.1 %; Hematocrit 40.2 % (37.5-50.1); Hemoglobin 13.6 g/dL (12.9-16.9); Immature Granulocytes % 0.2 % (0-4); Lymphocytes # 0.6 K/mcL (0.6-4.6); Mean Corpuscular HGB Conc 33.8 g/dL (31.6-35.5); Mean Corpuscular Hemoglobin 30.3 pg (28.0-33.3); Mean Corpuscular Volume 89.5 fL (83.0-100.0); Mean Platelet Volume 10.8 fL (9.4-12.4); Monocytes # 0.5 K/mcL (0.0-1.3); Monocytes % 11.9 %; Neutrophils # 3.2 K/mcL (1.6-8.9); Platelet Count 133 K/mcL (140-400); Red Blood Count 4.49 M/mcL (4.19-5.50); Red Cell Distribution Width 12.7 % (11.5-14.5); Segmented Neutrophils % 69.1 %; White Blood Count 4.6 K/mcL (4.3-11.1)
[2021-02-15 18:45] LABS: Alanine Aminotransferase 51 Units/L (7-52); Albumin 4.1 g/dL (3.5-5.7); Albumin/Globulin Ratio 1.3 (1.1-2.2); Alkaline Phosphatase 95 Units/L (34-104); Aspartate Amino Transferase 44 Units/L (13-39); BUN/Creatinine Ratio 22 (6-26); Bilirubin,Direct 0.2 mg/dL (0.0-0.2); Bilirubin,Total 1.2 mg/dL (0.3-1.0); Blood Urea Nitrogen 32 mg/dL (8-23); Calcium 9.7 mg/dL (8.6-10.3); Carbon Dioxide 27 mEq/L (23-29); Chloride 97 mEq/L (98-107); Globulin 3.1 g/dL (2.4-3.5); Glucose 550 mg/dL (70-105); Lipase 87 Units/L (11-82); Osmolality,Calculated 306 (280-300); Potassium 4.3 mEq/L (3.5-5.1); Sodium 132 mEq/L (136-145); Total Protein 7.2 g/dL (6.4-8.9); Troponin I < 0.03 ng/mL (< 0.04); eGFR For African Americans 55 (> 60); eGFR For Non-African Americans 45 (> 60)
[2021-02-15 20:03] LABS: Bilirubin,Urine Negative (Negative); Blood,Urine Negative (Negative); Clarity,Urine Clear (Clear); Color,Urine Colorless (Yellow); Glucose,Urine (UA) >=1000 mg/dL (Normal); Ketones,Urine Negative (Negative); Leukocyte Esterase,Urine Negative (Negative); Nitrite,Urine Negative (Negative); PH,Urine 6.5 pH Units (5.0-8.0); Protein,Urine Negative (Neg-Trace); RBC,Urine 0-3 per hpf (0-3); Specific Gravity,Urine 1.026 (1.010-1.025); Urobilinogen,Urine Normal (Normal); WBC,Urine 0-3 per hpf (0-3)
[2021-02-15] MEDS ORDERED: rOPINIRole 1 MG TABLET PO ONE (20:58)
[2021-02-15] MEDS ORDERED: Ondansetron ODT 4 MG TAB.RAPDIS SL PRN (22:15)
[2021-02-15] MEDS ORDERED: Acetaminophen 325 MG TABLET PO PRN (22:15)
[2021-02-15] MEDS ORDERED: Melatonin 3 MG TABLET PO PRN (22:15)
[2021-02-15] MEDS ORDERED: Naloxone 0.4 MG/ML INJ IVP PRN (22:15)
[2021-02-15] MEDS ORDERED: Loratadine 10 MG TABLET PO PRN (22:17)
[2021-02-15] MEDS ORDERED: Albuterol 2.5 MG/3 ML NEBULIZER IH PRN (22:17)
[2021-02-15] MEDS ORDERED: FluocinoNIDE 0.05% CRM 15 GM TUBE TP PRN (22:17)
[2021-02-15] MEDS ORDERED: *HR* Dextrose 50 % in Water (Vial) 50 ML VIAL IVP PRN (22:18)
[2021-02-15] MEDS ORDERED: Dextrose Gel 15 GM/37.5 ML TUBE PO PRN ×2 (22:18)
[2021-02-15] MEDS ORDERED: D5% in Water 1,000 ML IVC PRN (22:18)
[2021-02-16 06:05] LABS: BUN/Creatinine Ratio 21 (6-26); Blood Urea Nitrogen 28 mg/dL (8-23); Calcium 9.1 mg/dL (8.6-10.3); Carbon Dioxide 28 mEq/L (23-29); Chloride 102 mEq/L (98-107); Chol/HDL Ratio 4.5 (0-4.9); Cholesterol 139 mg/dL (< 200); Glucose 334 mg/dL (70-105); HDL Cholesterol 31 mg/dL (40-59); LDL Cholesterol,Calculated 75 mg/dL (< 100); Osmolality,Calculated 303 (280-300); Sodium 137 mEq/L (136-145); Triglycerides 164 mg/dL (< 150); eGFR For African Americans > 60 (> 60); eGFR For Non-African Americans 51 (> 60)
[2021-02-16] MEDS: Isosorbide MONOnitrate (24 HR) 30 MG TAB.ER.24H PO SCH (09:01)
[2021-02-16] MEDS: Insulin LISPRO 300 UNITS/3 ML VIAL SUBQ SCH ×3 (09:01→17:16)
[2021-02-16] MEDS: Cholecalciferol (D-3) 1,000 UNIT (25MCG) TABLET PO SCH (09:01)
[2021-02-16] MEDS: Gabapentin 300 MG CAPSULE PO SCH ×2 (12:43→21:00)
[2021-02-16] MEDS ORDERED: rOPINIRole 0.25 MG TABLET PO SCH (17:15)
[2021-02-16] MEDS: *HR* Heparin 5,000 UNIT/ML VIAL SQ SCH (17:17)
[2021-02-16] MEDS ORDERED: Insulin LISPRO 300 UNITS/3 ML VIAL SUBQ SCH (21:00)
[2021-02-16] MEDS ORDERED: Insulin DETEMIR 100 UNIT/ML X5UNITS SUBQ SCH ×2 (21:00)
[2021-02-17] MEDS: *HR* Heparin 5,000 UNIT/ML VIAL SQ SCH (06:20)
[2021-02-17 06:48] LABS: BUN/Creatinine Ratio 20 (6-26); Blood Urea Nitrogen 26 mg/dL (8-23); Calcium 9.3 mg/dL (8.6-10.3); Carbon Dioxide 30 mEq/L (23-29); Chloride 103 mEq/L (98-107); Glucose 74 mg/dL (70-105); Osmolality,Calculated 291 (280-300); Potassium 3.5 mEq/L (3.5-5.1); Sodium 139 mEq/L (136-145); eGFR For African Americans > 60 (> 60); eGFR For Non-African Americans 52 (> 60)
[2021-02-17 07:21] VITALS: BP 145/83
[2021-02-17] MEDS: Insulin LISPRO 300 UNITS/3 ML VIAL SUBQ SCH (07:28)
[2021-02-17] MEDS: Isosorbide MONOnitrate (24 HR) 30 MG TAB.ER.24H PO SCH (08:06)
[2021-02-17] MEDS: Cholecalciferol (D-3) 1,000 UNIT (25MCG) TABLET PO SCH (08:06)
[2021-02-17] MEDS: Gabapentin 300 MG CAPSULE PO SCH (08:06)
[2021-02-17 09:45] LABS: Estimated Average Glucose 292 mg/dl; Hemoglobin A1C 11.8 %
== END 2021-02-17 09:33 | disposition home or self-care (01) ==
LOC: EMEROOARM 17:01 → 3ANU 17:01 → SUATTDRO 21:33 → 3ANU 22:19
PROVIDERS: ADMIT Internal Medicine; ATTEND Internal Medicine